=== PATIENT | male | born 1945 ===

== ENCOUNTER 2022-05-19 10:17 | Inpatient (IN) | payer MEDICARE, OTHER ==
[~2022-05-19] VITALS: Ht 172.7 cm; Wt 96.0 kg
[2022-05-19] MEDS ORDERED: ALLO300T2 PO (11:38)
[2022-05-19] MEDS ORDERED: FINA5TAB6 PO (11:38)
[2022-05-19] MEDS ORDERED: SERT-414 PO (11:38)
[2022-05-19] MEDS ORDERED: PANT40TA52 PO (11:38)
[2022-05-19] MEDS ORDERED: GABA-486 PO (11:38)
[2022-05-19] MEDS ORDERED: LACTULOSE SYRUP 10GM/15ML (ENULOSE) 30ML UDC PO PRN (12:15)
[2022-05-19] MEDS ORDERED: FLEET ENEMA ADULT 1 EA BTL PR PRN (12:15)
[2022-05-19] MEDS ORDERED: diphenhydrAMINE 25 MG TAB (BENADRYL) PO PRN (12:15)
[2022-05-19] MEDS ORDERED: guaiFENesin/CODEINE (ROBITUSSIN AC) 10ML UDC PO PRN (12:15)
[2022-05-19] MEDS ORDERED: LOPERAMIDE 2 MG (IMODIUM) TABLET PO PRN (12:15)
[2022-05-19] MEDS ORDERED: MELATONIN 3 MG TABLET PO PRN (12:15)
[2022-05-19] MEDS ORDERED: CALCIUM CARBONATE 500 MG (TUMS) TAB.CHEW PO PRN (12:15)
[2022-05-19] MEDS ORDERED: BISACODYL 10 MG SUPP (DULCOLAX) PR PRN (12:15)
[2022-05-19] MEDS ORDERED: DOCUSATE SODIUM 100 MG (COLACE) CAP PO PRN (12:15)
[2022-05-19] MEDS ORDERED: ONDANSETRON 4 MG (ZOFRAN) ORAL DISSOLVE TAB PO PRN (12:15)
--- NOTE | 2022-05-19 12:15 | PM&R Post Admission Assessment ---
PM&R Date of Visit: May 19, 2022 Time of Visit: 17:00 History of Present Illness Chief complaint: Lumbar spine surgery with debility History of present illness: This is a 77-year-old male who has very complicated medical history including CLL, CKD, and gout who presents to inpatient rehab due to slow recovery and in need of aggressive PT and OT in order to regain independence to return back home with . He is currently much improved since postoperative course revealed postoperative pneumonia requiring Rocephin and vancomycin empirically along with 1 unit of transfusion at [facility] but upon lab check today his hemoglobin was 6.8 requiring blood transfusion today. He is voiding well since catheter was removed and his bowels are moving. Pain is pretty well controlled. Prior level of function was independent with use of assistive device due to back pain living with his spouse at home. Patient will require close monitoring for high risk complications during the inpatient rehab course. Past Gtwqnfw-Ebgidr-Wpzopx Hx Past Med/Social Hx: Reviewed Nursing Past Med/Soc Hx, Reviewed and Corrections made Patient Social History Marrital Status: Employed/Student: retired Alcohol Use: Denies Use Smoking Status: Never a Smoker Past Medical History Surgeries: Orthopedic Respiratory: Pneumonia, Sleep Apnea Cardiac: Coronary Artery Disease, High Cholesterol, Hypertension Neurological: Neuropathy Genitourinary: Benign Prostatic Hyperpl, Bladder Infection Gastrointestinal: Gastroesophageal Reflux Musculoskeletal: Arthritis, Chronic Back Pain Cancer: Leukemia Did You Recieve Any Treatments: Yes What Type of Treatment Did You: Chemotherapy PM&R Allergy/Meds/Data Review Allergies Coded Allergies: No Known Drug Allergies (Unverified , 05/19/22) Home Medications Scheduled Allopurinol (Allopurinol), 300 MG PO DAILY, (Reported) Finasteride (Finasteride), 5 MG PO DAILY, (Reported) Gabapentin (Gabapentin), 100 MG PO BID, (Reported) Pantoprazole Sodium (Pantoprazole Sodium), 40 MG PO DAILY, (Reported) Sertraline HCl (Sertraline HCl), 100 MG PO DAILY, (Reported) Current Medications Current Medications Reviewed Review of Systems Constitutional: see HPI, malaise, weakness EENTM: no symptoms reported Respiratory: no symptoms reported Cardiovascular: no symptoms reported Gastrointestinal: no symptoms reported Genitourinary: decreased output Musculoskeletal: back pain Skin: no symptoms reported Psychiatric/Neurological: Depressed All Other Systems Reviewed Negative Unless Noted: Yes Physical Exam Physical Exam Vital Signs Capillary Refill : Height, Weight, BMI Height: '" Weight: lbs. oz. kg; BMI Method: General Appearance: No Apparent Distress, WD/WN, Chronically ill Eyes: Bilateral Eye Normal Inspection, Bilateral Eye PERRL HEENT: PERRL/EOMI, Normal ENT Inspection, Pharynx Normal Neck: Full Range of Motion, Normal Inspection, Non Tender, Supple, Carotid Bruit Respiratory: Chest Non Tender, Lungs Clear, Normal Breath Sounds, No Accessory Muscle Use, No Respiratory Distress, Decreased Breath Sounds Cardiovascular: Regular Rate, Rhythm, No Edema, No Gallop, No JVD, No Murmur, Normal Peripheral Pulses Gastrointestinal: Normal Bowel Sounds, No Organomegaly, No Pulsatile Mass, Non Tender, Soft Back: Normal Inspection, No CVA Tenderness, No Vertebral Tenderness Extremity: Normal Capillary Refill, Normal Inspection, Normal Range of Motion, Non Tender, No Calf Tenderness, No Pedal Edema Neurologic/Psychiatric: Alert, Oriented x3, yarn tester II-XII Norm as Tested, Abnormal Gait, Depressed Affect, Motor Weakness (Lower extremities 4/5) Skin: Normal Color, Warm/Dry Lymphatic: No Adenopathy PM&R Medical Assessment & Plan REHAB/MEDICAL ASSESSMENT AND PLAN: REHAB IMPAIRMENT GROUP: Lumbar spine stenosis with myelopathy ETIOLOGIC DIAGNOSIS: Lumbar spine stenosis with myelopathy The comorbidities that impact the patients function and/or functional outcome by: Advanced age, CLL, transfusions required, CAD, severe debility REHAB PLAN: The patient is being admitted to our comprehensive inpatient rehabilitation facility and can tolerate the intensity of service consisting of at least: 180 minutes of therapy a day, 5 out of 7 days a week Rehab treatment will consist of: PT and OT will focus on regaining ambulatory function with fall risk prevention in order to regain independence in ADLs in order to return back home to independent living The patient/family has a good understanding of our discharge process and will benefit from an interdisciplinary inpatient rehabilitation program. The patient has potential to make improvement and is in need of at least two of the following multidisciplinary therapies including but not limited to physical, occupational, speech, and prosthetics and orthotics. Additionally the patient will need services from respiratory, nutritional services, wound care, psychology, etc. (Customize this to each patient). Given the patients complex condition and risk of further medical complications, rehabilitation services cannot be safely or effectively provided at a lower level of care such as a [place] [facility] facility. BARRIERS TO DISCHARGE: Severe debility ESTIMATED LOS: 10 days DISPOSITION: Home RELEVANT CHANGES SINCE PREADMISSION SCREENING: I have compared the patients medical and functional status at the time of the preadmission screening and there are: No changes PROGNOSIS: Good REHABILITATION GOALS: 1.PT and OT will focus on regaining ambulatory function with fall risk prevention in order to regain independence in ADLs in order to return back home to independent living All the above goals were reviewed with the patient and he/she is in agreement. By signing this document, I acknowledge that I have personally performed a full physical examination on this patient within 24 hours of admission to this inpatient rehabilitation facility and have determined the patient to be able to tolerate the above course of treatment at an intensive level for a reasonable period of time. I will be completing a detailed individualized Plan of Care for this patient by day #4 of the patients stay based upon the Preadmission Screen, the Post-Admission Evaluation, and the therapy evaluations. Admission Dx/Comorbidities: (1) Lumbar spinal stenosis ICD Codes: M48.061 - Spinal stenosis, lumbar region without neurogenic claudication Assessment/Plan Assessment and Plan Assess & Plan/Chief Complaint Assessment: Debility following extensive lumbar spine decompression by Dr. CAPPS at [facility] Postoperative pneumonia Postoperative anemia requiring 1 unit of blood at [facility] and again on a dmit on 05/19/2022 at [facility] History of CLL with chronic leukocytosis CAD previous stent Hypertension Hyperlipidemia ANA Depression GERD Gout Plan: Complete IV antibiotics for pneumonia Pain control Home meds PT and OT NAHUM NAIK DO May 19, 2022 12:15
[2022-05-19] MEDS ORDERED: VANCOMYCIN INJECTION 0.1 MG in NS (IVPB) 250 ML IV SCH (12:45)
[2022-05-19 14:30] VITALS: BP 138/58
--- NOTE | 2022-05-19 15:25 | Physical Therapy Evaluation ---
PT Evaluation-General Medical Diagnosis Admission Date May 19, 2022 at 14:10 Medical Diagnosis: L4-S1 TLIF Onset Date: May 19, 2022 Therapy Diagnosis Therapy Diagnosis: Gait deficit, strength deficit Precautions Precautions/Isolations: Fall Prevention Back precautions Weight Bear Status Right Lower Extremity: Right Full Weight Bearing Left Lower Extremity: Left Full Weight Bearing Referral Physician: Dr. Mahmood Reason for Referral: Evaluation/Treatment Medical History History of Falls (past yr): No Prior Surgery (last 100 days): Yes Reviewed History: Yes Social History Home: Single Level Current Living Status: Spouse Entry Into Home: Stairs Without Railing PT Steps Into Home: 3 Prior Prior Level of Function SCALE: Activities may be completed with or without assistive devices. 6-Ulyynjflzn-ezbkjzb completes the activity by him/herself with no assistance from a helper. 5-Set-up or Clean-up Assistance-helper sets up or cleans up; patient completes activity. [place] assists only prior to or following the activity. 4-Supervision or Touching Assistance-helper provides verbal cues and/or touching/steadying and/or contact guard assistance as patient completes activity. Assistance may be provided throughout the activity or intermittently. 3-Partial/Moderate Assistance-helper does LESS THAN HALF the effort. [place] lifts, holds or supports trunk or limbs, but provides less than half the effort. 2-Substantial/Maximal Assistance-helper does MORE THAN HALF the effort. [place] lifts or holds trunk or limbs and provides more than half the effort. 8-Psdgqwslj-vymvvr does ALL the effort. Patient does none of the effort to complete the activity. Or, the assistance of 2 or more helpers is required for the patient to complete the activity. If activity was not attempted, code reason: 7-Patient Refused. 9-Not Applicable-not attempted and the patient did not perform the activity before the current illness, exacerbation or injury. 10-Not Attempted due to Environmental Limitations-(lack of equipment, weather restraints, etc.). 88-Not Attempted due to Medical Conditions or Safety Concerns. Bed Mobility: 6 Transfers (B,C,W/C): 6 Gait: 6 Stairs: 6 Indoor Mobility (Ambulation): Independent Stairs: Independent Prior Devices Use: None PT Evaluation-Current Subjective Patient sitting in w/c upon PT arrival, agreeable to treatment. He reports pain currently is 7/10. OT reports he required min A for BLEs out of the car. Pain Section J - Health Conditions 1. Rarely or not at all 2. Occasionally 3. Frequently 4. Almost constantly 8. Unable to answer Pain Effect on Sleep: 7 Pain Interference with Therapy: 7 Pain Interference w/Day-to-Day: 7 Objective Patient Orientation: Person, Place, Time, Situation ROM/Strength ROM Lower Extremities WFLs bilaterally all planes Strength Lower Extremities Right hip flexion 3-/5, hip abd 3+/5, hip adduction 4/5, knee flexion 3+/5, knee extension 3-/5 Left hip flexion 3-/5, hip abd 3-/5, hip adduction 4/5, knee flexion 3/5, knee extension 3-/5 Sensory Vision: Functional Hearing: Functional Sensation Right Lower Extremit: Intact Sensation Left Lower Extremity: Impaired Transfers Roll Left & Right (QC): 88 Sit to Lying (QC): 88 Lying to Sitting/Side of Bed(Q: 88 Sit to Stand (QC): 3 Chair/Cyr-lc-Ivvvo Xfer(QC): 3 Toilet Transfer (QC): 3 Car Transfer (QC): 3 Gait Does the Patient Walk?: Yes Mode of Locomotion: Walk Anticipated Mode of Locomotion: Walk Walk 10 feet (QC): 4 Walk 50 ft with 2 Turns(QC): 3 Walk 150 ft (QC): 3 Walking 10ft/uneven surface-QC: 4 Distance: 250 feet Gait Assistive Device: FWW Wheelchair Training Does the Pt Use a Wheelchair?: Yes Distance: 150 Wheel 50 ft with 2 turns (QC): 4 Wheel 150 ft (QC): 4 Type of Wheelchair: Manual Refuses to use his bilateral UEs initially and only uses his LEs. Stairs #of Steps: 4 1 Step (curb) (QC): 4 4 Steps (QC): 4 12 Steps (QC): 88 Balance Sitting Static: Good Sitting Dynamic: Fair Standing Static: Fair Standing Dynamic: Fair Picking up an Object (QC): 88 Treatment Patient was co-treated with OT due to the patients need for two disciplines in various aspects of treatment. OT focused on ADLs, Cognitive activity and UE activities, while PT focused on gait, balance sitting and standing, w/c mobility and steps. Patient performed standing and sitting dynamic balance activity with SBA/CGA for numerous repetitions. Assessment/Needs Patient tolerated treatment well. He demonstrates all observed transfers with min/mod A. Patient ambulates 150, 250 feet with FWW, with CGA and verbal cues for safety, progression, posture and balance. Patient ambulates with LSO properly applied. He demonstrates an accentuated thoracic kyphosis and f lattened lumbar lordosis with rounded shoulders and mild forward head shift. Patient stops briefly while ambulating more than 5 times with each gait session, stating he feels his leg will give out. Reports his left LE feels weak and stops to steady himself. Able to self correct without assistance, however does occur frequently. Patient sitting on table with OT post PT treatment. Rehab Potential: Good PT Field Recorder Goals Field Recorder Goals PT Intermediate Goals Time Frame: Jun 03, 2022 Scoring Section J - Health Conditions 1. Rarely or not at all 2. Occasionally 3. Frequently 4. Almost constantly 8. Unable to answer Pain Effect on Sleep: 2 Pain Interference with Therapy: 2 Pain Interference w/Day-to-Day: 2 Roll Left to Right (QC): 6 Lying-Sitting on Side/Bed(QC): 6 Sit to Stand (QC): 6 Chair/Hcb-vv-Idvio Xfer(QC): 6 Car Transfer (QC): 6 Does the Patient Walk: Yes Gait (FIM): 3 Gait distance (FIM): 3=150 ft Walk 10 feet (QC): 6 Walk 10ft-Uneven Surface(QC): 6 Walk 50ft with 2 Turns (QC): 6 Walk 150 ft (QC): 6 Gait Assistive Device: FWW Does the Pt use WC or Scooter?: Yes Wheelchair (FIM): 3 Wheelchair Level of Assist: 6 Wheel 50 feet with 2 turns (QC: 6 Stairs (FIM): 6 1 Step (curb) (QC): 6 4 Steps (QC): 6 12 Steps (QC): 4 Stairs Level Of Assist: 6 Picking up an Object (QC): 6 PT Plan Problem List Problem List: Activity Tolerance, Functional Strength, Safety, Balance, Gait, Transfer, Bed Mobility, ROM Treatment/Plan Treatment Plan: Continue Plan of Care Treatment Plan: Bed Mobility, Education, Functional Activity Rafal, Functional Strength, Group Therapy, Gait, Safety, Therapeutic Exercise, Transfers Treatment Duration: Jun 24, 2022 Frequency: At least 5 of 7 days/Wk (IRF) Estimated Hrs Per Day: 1.5 hours per day Patient and/or Family Agrees t: Yes Safety Risks/Education Patient Education: Gait Training, Transfer Techniques Teaching Recipient: Patient Teaching Methods: Demonstration, Discussion Response to Teaching: Verbalize Understanding, Return Demonstration Time/GCodes Time In: 1430 Time Out: 1515 Total Billed Treatment Time: 45 Total Billed Treatment Visit, EVm (10), FA (20), Gait (15) PT eval from [id number]; Co-Treat with OT from [id number] POLI MAC PT May 19, 2022 15:25
[2022-05-19] MEDS: HYDROcodone/APAP 7.5 MG/325 MG (LORTAB, LORCET PLUS) TABLET PO PRN ×2 (15:30→20:41)
--- NOTE | 2022-05-19 15:54 | Physical Therapy Daily Note ---
PT Daily Note-Current Subjective Patient in therapy gym pre tx, agrees to PT, has 7-8/10 back pain, nurse brings in pain meds during tx. Will be co-treating with OT due to poor patient mobility, strength, endurance, increased pain with activity, coordinate UE and LE during activity, safety and reduce risk of falls. Pain Section J - Health Conditions 1. Rarely or not at all 2. Occasionally 3. Frequently 4. Almost constantly 8. Unable to answer Pain Effect on Sleep: 7 Pain Interference with Therapy: 7 Pain Interference w/Day-to-Day: 7 Appearance Patient in bed post tx with nurse call, phone, tray, bed alarm on. Mental Status Patient Orientation: Person, Place, Situation back brace Transfers SCALE: Activities may be completed with or without assistive devices. 2-Yiicsdqkys-qhcflyt completes the activity by him/herself with no assistance from a helper. 5-Set-up or Clean-up Assistance-helper sets up or cleans up; patient completes activity. [place] assists only prior to or following the activity. 4-Supervision or Touching Assistance-helper provides verbal cues and/or touching/steadying and/or contact guard assistance as patient completes activity. Assistance may be provided throughout the activity or intermittently. 3-Partial/Moderate Assistance-helper does LESS THAN HALF the effort. [place] lifts, holds or supports trunk or limbs, but provides less than half the effort. 2-Substantial/Maximal Assistance-helper does MORE THAN HALF the effort. [place] lifts or holds trunk or limbs and provides more than half the effort. 3-Yneyyolpe-cbwsdi does ALL the effort. Patient does none of the effort to complete the activity. Or, the assistance of 2 or more helpers is required for the patient to complete the activity. If activity was not attempted, code reason: 7-Patient Refused. 9-Not Applicable-not attempted and the patient did not perform the activity before the current illness, exacerbation or injury. 10-Not Attempted due to Environmental Limitations-(lack of equipment, weather restraints, etc.). 88-Not Attempted due to Medical Conditions or Safety Concerns. Roll Left & Right (QC): 4 Sit to Lying (QC): 3 Lying to Sitting/Side of Bed(Q: 3 Sit to Stand (QC): 3 Chair/Lih-ri-Kytct Xfer(QC): 4 min assist for supine <-> sit, educated on log roll, min assist sit to stand. Patient performed standing UE activity and seated balloon hitting to work on trunk strength and stability Weight Bearing Right Lower Extremity: Right Full Weight Bearing Left Lower Extremity: Left Full Weight Bearing Gait Training Distance: 300' Walk 10 feet (QC): 4 Walk 50 ft with 2 Turns(QC): 4 Walk 150 ft (QC): 4 Gait Assistive Device: FWW WC follow, SBA, slow but steady ambulation, occasional standing rest break. Balance Picking up an Object (QC): 4 (CGA using a knot borer) Treatments PT performed ambulation, bed mobility and transfers, standing during UE activity and positioning and safety during balloon activity, OT performed balloon activity, UE activity, UE positioning and safety during activity Assessment Current Status: Fair Progress increased pain with activity PT Long-Term Goals Loom Tuner Goals PT Long-Term Goals Time Frame: Jun 03, 2022 Roll Left & Right (QC): 6 Sit to Lying (QC): 6 Lying-Sitting on Side/Bed(QC): 6 Sit to Stand (QC): 6 Chair/Ndi-qs-Eytes Xfer(QC): 6 Toilet Transfer (QC): 6 Car Transfer (QC): 6 Does the Patient Walk: Yes Walk 10 feet (QC): 6 Walk 50ft with 2 Turns (QC): 6 Walk 150 ft (QC): 6 Walking 10ft on Uneven Surface: 6 1 Step (curb) (QC): 6 4 Steps (QC): 6 12 Steps (QC): 4 Picking up an Object (QC): 6 Does the Pt use WC or Scooter?: Yes Wheel 50 feet with 2 turns (QC: 6 Wheel 150 feet: 6 PT Plan Problem List Problem List: Activity Tolerance, Functional Strength, Safety, Balance, Gait, Transfer, Bed Mobility, ROM Treatment/Plan Treatment Plan: Continue Plan of Care Treatment Plan: Bed Mobility, Education, Functional Activity Rafal, Functional Strength, Group Therapy, Gait, Safety, Therapeutic Exercise, Transfers Treatment Duration: Jun 24, 2022 Frequency: At least 5 of 7 days/Wk (IRF) Estimated Hrs Per Day: 1.5 hours per day Patient and/or Family Agrees t: Yes Safety Risks/Education Patient Education: Gait Training, Transfer Techniques, Reviewed Precautions, Correct Positioning, Reviewed Don/Doff Brace, Safety Issues Teaching Recipient: Patient Teaching Methods: Demonstration, Discussion Response to Teaching: Reinforcement Needed Time/GCodes Time In: 1515 Time Out: 1600 Total Billed Treatment Time: 45 Total Billed Treatment 1 visit FA Veronique' RIDGE SHI PT May 19, 2022 15:54
--- NOTE | 2022-05-19 15:59 | Occupational Therapy Eval ---
OT Evaluation-General/PLF Medical Diagnosis Admission Date May 19, 2022 at 14:10 Medical Diagnosis: L4-S1 TLIF Onset Date: May 19, 2022 Therapy Diagnosis Therapy Diagnosis: decreased ADL status Precautions Precautions/Isolations: Fall Prevention Comments Back precautions, back brace when OOB and up, 10-15lb lifting restriction Referral Physician: Dr. Mahmood Referral Reason: Evaluation/Treatment Medical History Additional Medical History anxiety, arthritis, depression, horseshoe kidney, HTN, incomplete bladder emptying, elbow surgery, b/l knee replacements. Current History s/p L4-S1 TLIF with bilateral percutaneous fusion 05/16/22. Transfer to [facility] 05/19/22 Social History Home: Single Level Current Living Status: Spouse Entry Into Home: Stairs Without Railing Steps Into Home: 3 ADL-Prior Level of Function SCALE: Activities may be completed with or without assistive devices. 5-Nflaaikvsa-yemjknf completes the activity by him/herself with no assistance from a helper. 5-Set-up or Clean-up Assistance-helper sets up or cleans up; patient completes activity. Tarzan assists only prior to or following the activity. 4-Supervision or Touching Assistance-helper provides verbal cues and/or touching/steadying and/or contact guard assistance as patient completes activity. Assistance may be provided throughout the activity or intermittently. 3-Partial/Moderate Assistance-helper does LESS THAN HALF the effort. Tarzan lifts, holds or supports trunk or limbs, but provides less than half the effort. 2-Substantial/Maximal Assistance-helper does MORE THAN HALF the effort. Tarzan lifts or holds trunk or limbs and provides more than half the effort. 9-Jxjcxkdef-reayql does ALL the effort. Patient does none of the effort to complete the activity. Or, the assistance of 2 or more helpers is required for the patient to complete the activity. If activity was not attempted, code reason: 7-Patient Refused. 9-Not Applicable-not attempted and the patient did not perform the activity before the current illness, exacerbation or injury. 10-Not Attempted due to Environmental Limitations-(lack of equipment, weather restraints, etc.). 88-Not Attempted due to Medical Conditions or Safety Concerns. ADL PLOF Comments Pt initially indicated he had difficulty with completing ADLs prior to his surgery, but upon further questioning reports he was independent with all ADLs and functional mobility without AD. He has a tub/shower, no SC Self Care: Independent Functional Cognition: Independent OT Current Status Subjective Pt arrived to [facility] via private vehicle, assisted to ARU. C/o 6-03/06 pain in low back at rest, 05/07 with activity. Nurse notified and provided pain medication. Pt declined ADLs on this date, as he had a shower earlier today at other facility. Pt agreeable to ADL tx tomorrow. Mental Status/Objective Patient Orientation: Person, Confused, Place, Situation Acute Mental Status Change: 1 Inattention: 2 Disorganized thinkin Altered level of consciousness: 0 Attachments: Other-See Comments (LSO) Current Hand Dominance: Right Upper Extremity ROM WFL, BUE shoulder flexion to approx 150 degrees Upper Extremity Coordination WFL Upper Extremity Sensation WFL Upper Extremity Strength not formally tested due to lifting restriction, grossly 3+/5 ADL-Treatment Eating (QC): 7 Oral Hygiene (QC): 7 Shower/Bathe Self (QC): 7 Upper Body Dressing (QC): 7 Lower Body Dressing (QC): 7 On/Off Footwear (QC): 7 Toileting Hygiene (QC): 7 Other Treatments Pt arrived to ARU via private vehicle, transferred to w/c and brought to ARU. Pt provided information about PLOF And home set up and participated in UE screen. PT present for evaluation (not billed). OT/PT cotreat due to skill of 2 clinicians required which a rehab liaison could not perform in order to coordinate UE/LEs, decrease fall risk, and due to pt's limitations in strength, activity tolerance, mobility, and transfers. OT focused on UE placement and cues for sequencing and safety, PT focused on LE placement, dynamic standing/sitting ba sen, and gross overall movements/transfers. Pt used FWW to transfer around [facility] common area and to therapy gym. Pt sat EOB and completed 2 pipe tree figures, 1lb wrist weight bilaterally, in order to increase BUE strength, dynamic sitting balance, and core strength. Pt then completed 1 pipe tree figure standing, with 1 seated rest break during task. Pt sat EOB, hitting balloon back and forth with OT as PT focused on dynamic sitting balance and core strength. Pt used FWW to perform functional mobility around [facility] common area and to his room, transferring to bed. Post tx, pt in bed, call light in reach and all needs met, bed alarm act ivated. min-mod A with transfers, CGA-SBA with ambulation using FWW. VCs required for safety and positioning. Education OT Patient Education: Correct positioning, Energy conservation, Modified ADL techniques, Progress toward Goal/Update tx plan, Purpose of tx/functional activities, Reviewed precautions, Rehab process Teaching Recipient: Patient Teaching Methods: Discussion Response to Teaching: Reinforcement Needed OT Short Term Goals Short Term Goals Time Frame: Jun 03, 2022 Shower/bathe self: 4 Lower body dressin Putting on/taking off footwear: 4 OT Half-Way Goals Bar Pilot Goals Time Frame: Jun 17, 2022 Acute change in mental status: 0 Inattention: 0 Disorganized thinkin Altered level of consciousness: 0 Eating (QC): 6 Oral Hygiene (QC): 6 Toileting Hygiene (QC): 6 Shower/Bathe Self (QC): 5 Upper Body Dressing (QC): 6 Lower Body Dressing (QC): 6 On/Off Footwear (QC): 6 Additional Goals: 1-Demonstrate ADL Tasks, 2-Verbalize Understanding, 3- ImproveStrength/Rafal 1=Demonstrate adherence to instructed precautions during ADL tasks. 2=Patient will verbalize/demonstrate understanding of assistive devices/modifications for ADL. 3=Patient will improve strength/tolerance for activity to enable patient to perform ADL's. OT Education/Plan Problem List/Assessment Assessment: Decreased Activ Tolerance, Decreased Safety Aware, Decreased UE Strength, Impaired Cognition, Impaired Funct Balance, Impaired I ADL's, Impaired Self-Care Skills Discharge Recommendations Plan/Recommendations: Continue POC Equpiment Recommendations-D/C: Extended Bath Bench, Hip Kit Treatment Plan/Plan of Care Patient would benefit from OT for education, treatment and training to promote independence in ADL's, mobility, safety and/or upper extremity function for ADL's. Plan of Care: ADL Retraining, Functional Mobility, Group Exercise/Act as Ind, UE Funct Exercise/Act Treatment Duration: Jun 17, 2022 Frequency: At least 5 of 7 days/Wk (IRF) Estimated Hrs Per Day: 1.5 hours per day Agreement: Yes Rehab Potential: Good Time/GCodes Start Time: 14:15 Stop Time: 16:00 Total Time Billed (hr/min): 95 Billed Treatment Time 8058-5717 OT eval (15'), [id number] PT eval (not billed), [id number] Cotreat (80') 1, EVL (15'), FA 5 (80') BETTY CALI OT May 19, 2022 15:59
[2022-05-19] MEDS: cefTRIAXone 1 GM PRE-MIX 50 ML IV SCH (16:07)
--- NOTE | 2022-05-19 17:14 | Diagnostic Imaging Report ---
EXAMINATION: Chest 1 view HISTORY: Pneumonia. COMPARISON: None available. FINDINGS: The lungs are clear without edema or pneumonia. No pleural effusion or pneumothorax. Heart size is normal. IMPRESSION: 1. Clear lungs. Dictated by: Dictated on workstation # [id number]
[2022-05-19] MEDS ORDERED: VANCOMYCIN 1,750 MG/NS 500 ML IVPB IV NR ×2 (18:00)
--- NOTE | 2022-05-19 18:02 | Progress Note ---
RAMANA ANDUJAR 05/19/22 1802: Progress Note Chief Complaint: Debility following L4-S1 TLIF/PSF complicated by aspiration pneumonia History of Present Illness: This is a 77yo Male s/p L4-S1 SLIF/PSF ([id number]) which was complicated by aspiration pneumonia. Was placed on Zosyn. Slow to progress due to debility and episodes of confusion. Patient was transferred here to [facility] inpatient rehab for continuation of antibiotics and therapy. Medical history includes Anxiety, Depression, CLL (with anemia and thrombocytopenia), CAD, Arthritis, Horseshoe kidney, Incomplete Bladder Emptying, BPH, Lumbar radiculopathy, Lumbar spinal stenosis, Lumbar spondylolisthesis, Neurogenic claudication, degenerative disc disease. Patient reports that he does not take finasteride due to frequent urination. Patient reports that he feels well overall. Patient reports receiving 2 units of platelets pre-op and 1 unit of blood post-op. Patient is lying in bed comfortably with CPAP when I visited and is accompanied by his . Past Medical History: Anxiety, Depression, CLL (with anemia and thrombocytopenia), CAD, Arthritis, Horseshoe kidney, Incomplete Bladder Emptying, BPH, Lumbar radiculopathy, Lumbar spinal stenosis, Lumbar spondylolisthesis, Neurogenic claudication, degenerative disc disease Past Surgical History: Cystoscopy (2005), Prostate biopsy (2006 and 2007), Appendectomy, Cholecystectomy, Elbow Surgery, prostate TUNA Allergies: Amoxicillin (severe diarrhea) Home Meds: Allopurinol, 300 MG PO DAILY Finasteride, 5 MG PO DAILY Gabapentin, 100 MG PO BID Pantoprazole Sodium, 40 MG PO DAILY Sertraline HCl, 100 MG PO DAILY Multivitamin Social History: Tobacco: former smoker (quit in 1991) ETOH: denies Illicit Drugs: denies : Yes Family History: Stroke (father) Review of Systems: Constitutional: Denies chills, diaphoresis, dizziness, fever, malaise, weakness, weight gain, or weight loss HEENTM: Denies hearing loss, blurred vision, double vision, hoarseness Respiratory: Endorses SOA and dyspnea on exertion. Denies cough, hemoptysis, orthopnea, phlegm, stridor, wheezing Cardiovascular: Denies chest pain, tightness, palpitations, syncope, valvular heart disease G.I.: Denies abdominal pain, nausea, vomiting, diarrhea, constipation, dysphasia, hematemesis, heartburn, jaundice, loss of appetite, melena : Denies change in urine output, discharge, dysuria, hematuria, hesitancy, incontinence, nocturia, pain Musculoskeletal: Denies back pain, gout, joint pain, joint swelling, muscle pain, weakness, neck pain Skin: Denies change in color, change in hair/nails, dryness, hx of skin cancer, rash Psychiatric/neurological: Endorses anxiety, depression. Denies headache, numbness, paresthesia, tremors, weakness Exam: General Appearance: Older white male in no apparent distress. Chronically ill and obese. HEENT: PERRLA, EOMI, moist mucous membranes, anicteric sclera bilaterally. Respiratory: Lungs CTAB normal breath sounds, no accessory muscle use, no respiratory distress. CVS: RRR, no murmur, no edema GI: Normoactive bowel sounds, no organomegaly, no pulsatile mass, abdomen nontender, colostomy stoma Neuro: Alert, Oriented x3, No motor/sensory deficits, normal mood/affect, CN II- XII normal as tested Extremity: No edema, No decreased ROM in extremities Labs/Imaging: CBC w/ Diff (17MAY2022): WBC 32.5 K/uL Hgb 6.9 g/dL Hct 23.7% Plt 53 K/uL XR Chest (17MAY2022): Rounded pneumonia suspected right upper lung Assessment: s/p L4-S1 TLIV/PSF (16MAY2022) Aspiration Pneumonia CLL (with anemia and thrombocytopenia) CAD Anxiety Depression horseshoe kidney BPH Spinal stenosis Spondylolisthesis Neurogenic claudication degenerative disc disease. Plan: Monitor Labs Contine abx for aspiration PNA: ceftriaxone, vancomycin Supportive Care PT, OT KATIE NAIK DO 05/20/22 [id number]: Supervisory-Addendum Brief Verification & Attestation Participated in pt care: history, MDM, physical Personally performed: exam, history, MDM, supervision of care Care discussed with: Medical Student Procedures: n/a Results interpretation: Verified all documentation Verification and Attestation of Medical Student E/M Service A medical student performed and documented this service in my presence. I reviewed and verified all information documented by the medical student and made modifications to such information, when appropriate. I personally performed the physical exam and medical decision making. Katie Naik, May 20, 2022,05:30 RAMANA ANDUJAR May 19, 2022 18:02 KATIE NAIK DO May 20, 2022 05:30
[2022-05-19 18:24] LABS: BASOPHILS # (AUTO) 0.1 10^3/uL (0.0-0.1); BASOPHILS % (AUTO) 0 % (0-10); MEAN CORPUSCULAR HEMOGLOBIN 29 pg (25-34)
[2022-05-19 18:25] LABS: EOSINOPHILS % (AUTO) 0 % (0-10); HEMATOCRIT 23 % (40-54); LYMPHOCYTES # (AUTO) 1.6 10^3/uL (1.0-4.0); LYMPHOCYTES % (AUTO) 5 % (12-44); MEAN CORPUSCULAR HGB CONC 30 g/dL (32-36); MEAN CORPUSCULAR VOLUME 96 fL (80-99); MONOCYTES # (AUTO) 6.7 10^3/uL (0.0-1.0); MONOCYTES % (AUTO) 21 % (0-12); NEUTROPHILS # (AUTO) 21.3 10^3/uL (1.8-7.8); NEUTROPHILS % (AUTO) 68 % (42-75)
[2022-05-19 18:31] LABS: HEMOGLOBIN 6.8 g/dL (13.3-17.7); WHITE BLOOD COUNT 31.4 10^3/uL (4.3-11.0)
[2022-05-19 18:32] LABS: PLATELET COUNT 34 10^3/uL (130-400)
[2022-05-19 18:35] LABS: ALBUMIN 2.9 GM/DL (3.2-4.5); POTASSIUM 3.4 MMOL/L (3.6-5.0)
[2022-05-19 18:36] LABS: CALCIUM 8.2 MG/DL (8.5-10.1)
[2022-05-19 18:37] LABS: TOTAL PROTEIN 5.2 GM/DL (6.4-8.2)
[2022-05-19 18:39] LABS: BILIRUBIN,TOTAL 0.9 MG/DL (0.1-1.0)
[2022-05-19 18:41] LABS: CREATININE SERUM 0.81 MG/DL (0.60-1.30)
[2022-05-19 18:55] LABS: BAND NEUTROPHILS 2 %; BURR CELLS MODERATE; ELLIPT/OVALOCYTES MARKED; EOSINOPHILS % (MANUAL) 1 %; HYPOCHROMASIA MARKED; LYMPHOCYTES % (MANUAL) 4 %; MONOCYTES % (MANUAL) 13 %; NEUTROPHILS % (MANUAL) 80 %
[2022-05-19 20:05] VITALS: BP 133/62
[2022-05-19] MEDS: GABAPENTIN 100 MG (NEURONTIN) CAP PO SCH (20:40)
[2022-05-19] MEDS ORDERED: NS IV 500 ML 500 ML IV SCH ×2 (20:45)
[2022-05-19] MEDS: polyethylene glycoL POWDER 17 GM (MIRALAX) PACK PO SCH (21:00)
[2022-05-19] MEDS: SENNA W/DOCUSATE (SENOKOT S) TABLET PO SCH (21:00)
[2022-05-19] MEDS: DOCUSATE SODIUM 100 MG (COLACE) CAP PO SCH (21:00)
[2022-05-20 00:40] VITALS: BP 145/68
[2022-05-20 01:10] VITALS: BP 145/68
[2022-05-20] MEDS: HYDROcodone/APAP 7.5 MG/325 MG (LORTAB, LORCET PLUS) TABLET PO PRN ×4 (01:19→19:08)
[2022-05-20 04:30] VITALS: BP 152/72
[2022-05-20 05:37] LABS: BASOPHILS % (AUTO) 0 % (0-10); EOSINOPHILS % (AUTO) 0 % (0-10)
[2022-05-20 05:39] LABS: BASOPHILS # (AUTO) 0.1 10^3/uL (0.0-0.1); HEMATOCRIT 25 % (40-54); HEMOGLOBIN 7.6 g/dL (13.3-17.7); LYMPHOCYTES # (AUTO) 1.8 10^3/uL (1.0-4.0); LYMPHOCYTES % (AUTO) 7 % (12-44); MEAN CORPUSCULAR HEMOGLOBIN 27 pg (25-34); MEAN CORPUSCULAR HGB CONC 31 g/dL (32-36); MEAN CORPUSCULAR VOLUME 89 fL (80-99); MONOCYTES # (AUTO) 6.1 10^3/uL (0.0-1.0); MONOCYTES % (AUTO) 22 % (0-12); NEUTROPHILS # (AUTO) 16.9 10^3/uL (1.8-7.8); NEUTROPHILS % (AUTO) 62 % (42-75); PLATELET COUNT 43 10^3/uL (130-400); WHITE BLOOD COUNT 27.3 10^3/uL (4.3-11.0)
--- NOTE | 2022-05-20 05:51 | PM&R Progress Note ---
Subjective HPI/CC On Admission Date Seen by Provider: May 20, 2022 Time Seen by Provider: 12:30 Subjective/Events-last exam 05/20/2022: Doing well Settling in Family at bedside Transfusion has helped the patient Pain improved Baclofen added BM+ Voiding well Review of Systems General: Fatigue, Malaise Objective Exam Vital Signs Vital Signs Date Time Temp Pulse Resp B/P (MAP) Pulse Ox O2 Delivery O2 Flow Rate FiO2 05/20/22 21:50 37.0 05/20/22 21:30 Room Air 05/20/22 20:00 102 18 155/81 (105) 95 Capillary Refill : General Appearance: No Apparent Distress, WD/WN, Chronically ill HEENT: PERRL/EOMI, Normal ENT Inspection, Pharynx Normal Neck: Full Range of Motion, Normal Inspection, Non Tender, Supple, Carotid Bruit Respiratory: Chest Non Tender, Lungs Clear, Normal Breath Sounds, No Accessory Muscle Use, No Respiratory Distress, Decreased Breath Sounds Cardiovascular: Regular Rate, Rhythm, No Edema, No Gallop, No JVD, No Murmur, Normal Peripheral Pulses Gastrointestinal: Normal Bowel Sounds, No Organomegaly, No Pulsatile Mass, Non Tender, Soft Back: Normal Inspection, No CVA Tenderness, No Vertebral Tenderness Extremity: Normal Capillary Refill, Normal Inspection, Normal Range of Motion, Non Tender, No Calf Tenderness, No Pedal Edema Neurologic/Psychiatric: Alert, Oriented x3, roof bolter helper II-XII Norm as Tested, Abnormal Gait, Depressed Affect, Motor Weakness (Lower extremities 4/5) Skin: Normal Color, Warm/Dry Lymphatic: No Adenopathy Results/Procedures Lab Patient resulted labs reviewed. FIM Transfers Therapy Code Descriptions/Definitions Functional [place] Measure: 0=Not Assessed/NA 4=Minimal Assistance 1=Total Assistance 5=Supervision or Setup 2=Maximal Assistance 6=Modified [place] 3=Moderate Assistance 7=Complete IndependenceSCALE: Activities may be completed with or without assistive devices. 3-Sposhihijq-amjroeu completes the activity by him/herself with no assistance from a helper. 5-Set-up or Clean-up Assistance-helper sets up or cleans up; patient completes activity. [place] assists only prior to or following the activity. 4-Supervision or Touching Assistance-helper provides verbal cues and/or touching/steadying and/or contact guard assistance as patient completes activity. Assistance may be provided throughout the activity or intermittently. 3-Partial/Moderate Assistance-helper does LESS THAN HALF the effort. [place] lifts, holds or supports trunk or limbs, but provides less than half the effort. 2-Substantial/Maximal Assistance-helper does MORE THAN HALF the effort. [place] lifts or holds trunk or limbs and provides more than half the effort. 8-Bnzwqmtdt-auxezj does ALL the effort. Patient does none of the effort to complete the activity. Or, the assistance of 2 or more helpers is required for the patient to complete the activity. If activity was not attempted, code reason: 7-Patient Refused. 9-Not Applicable-not attempted and the patient did not perform the activity before the current illness, exacerbation or injury. 10-Not Attempted due to Environmental Limitations-(lack of equipment, weather restraints, etc.). 88-Not Attempted due to Medical Conditions or Safety Concerns. Roll Left to Right (QC): 4 Sit to Lying (QC): 3 Sit to Stand (QC): 3 Chair/Kdo-fn-Xzyas Xfer(QC): 4 Car Transfer (QC): 3 Gait Training Does the Patient Walk?: Yes Distance: 300' Walk 10 feet (QC): 4 Walk 50 ft with 2 Turns(QC): 4 Walk 150 ft (QC): 4 Walking 10ft/uneven surface-QC: 4 Gait Assistive Device: FWW Wheelchair Training Does the Pt Use a Wheelchair?: Yes Distance: 150 Wheel 50 ft with 2 turns (QC): 4 Wheel 150 ft (QC): 4 Type of Wheelchair: Manual Stair Training #of Steps: 4 1 Step (curb) (QC): 4 4 Steps (QC): 4 12 Steps (QC): 88 Balance Picking up an Object (QC): 4 (CGA using a environmental laboratory technician) ADL-Treatment Eating (QC): 7 Oral Hygiene (QC): 7 Shower/Bathe Self (QC): 7 Upper Body Dressing (QC): 7 Lower Body Dressing (QC): 7 On/Off Footwear (QC): 7 Toileting Hygiene (QC): 7 Assessment/Plan Assessment and Plan Assess & Plan/Chief Complaint Assessment: Debility following extensive lumbar spine decompression by Dr. CAPPS at [facility] Postoperative pneumonia Postoperative anemia requiring 1 unit of blood at [facility] and again on admit on 05/19/[address] History of CLL with chronic leukocytosis CAD previous stent Hypertension Hyperlipidemia ANA Depression GERD Gout Plan: Complete IV antibiotics for pneumonia Pain control Home meds PT and OT 05/20/2022: Monitor closely Monitor hgb (1) Lumbar spinal stenosis NAHUM NAIK DO May 20, 2022 05:51
--- NOTE | 2022-05-20 05:51 | Individualized Plan of Care ---
Individualized Plan of Care Rehab Nursing IPOC Order Admission Date May 19, 2022 at 14:10 Current Orders Orders Admission Order(Inpt,Obs,Sdc) (05/19/22 12:11) Vital Signs: Per Unit Policy ( 08,16,00 (05/19/22 12:11) Ashok Izquierdo (05/19/22 12:11) Sequential Compression Device (05/19/22 12:11) Warm In Worker-Inpt Rehab Con (05/19/22 12:11) Rehab Nursing Orders-Ipoc (05/19/22 12:11) Physical Therapy Rehab Orders (05/19/22 12:11) Occupational Therapy Rehab Ord (05/19/22 12:11) Speech Therapy Rehab Orders (05/19/22 12:11) Cbc With Automated Diff (05/20/22 06:00) Comprehensive Metabolic Panel (05/20/22 06:00) Precautions (Aru) (05/19/22 12:11) Weekly Weight WEEK (05/19/22 12:11) Rehab-Intensity Of Therapy (05/19/22 12:11) Initiate Admission Nursing Pro .admission (05/19/22 12:11) Alprazolam Tablet (Xanax Tablet) (05/19/22 12:15) Calcium Carbonate Chew Tablet (Antacid C (05/19/22 12:15) Diphenhydramine Tablet (Benadryl Tablet) (05/19/22 12:15) Docusate Sodium Capsule (Colace Capsule) (05/19/22 21:00) Docusate Sodium Capsule (Colace Capsule) (05/19/22 12:15) Bisacodyl Suppository (Dulcolax Supposit (05/19/22 12:15) Lactulose Oral Solution (Enulose Oral So (05/19/22 12:15) Na Phos/Na Biphos Enema (Fleet Enema Erick (05/19/22 12:15) Guaifenesin/Codeine Syrup (Robitussin Ac (05/19/22 12:15) Loperamide Tablet (Imodium Tablet) (05/19/22 12:15) Melatonin Tablet (Melatonin Tablet) (05/19/22 12:15) Polyethylene Glycol Powder Pkt (Miralax (9/22/22 21:00) Ondansetron Oral Dissolve Tab (Zofran (05/19/22 12:15) Senna S Tablet (Senokot S Tablet) (05/19/22 21:00) Acetaminophen Tablet/Caplet (Tylenol T (05/19/22 12:15) Code/Resuscitation (05/19/22 12:11) Allopurinol Tablet (Zyloprim Tablet) (05/20/22 09:00) Finasteride Tablet (Proscar Tablet) (05/20/22 09:00) Gabapentin Capsule/Tablet (Neurontin Cap (05/19/22 21:00) Pantoprazole Tablet (Protonix Tablet) (05/20/22 09:00) Sertraline Tablet (Zoloft Tablet) (05/20/22 09:00) Tramadol Tablet (Ultram Tablet) (05/19/22 12:45) Hydrocodone/Apap 7.5/325 Tab (Lortab 7. (05/19/22 12:45) Oxycodone Immediate Rel Tablet (Oxyir Ta (05/19/22 12:45) Vancomycin Injection (Vancomycin Injecti (05/19/22 12:45) Ceftriaxone 1 Gm Pre-Mix (Rocephin 1 Gm (05/19/22 15:00) Cbc With Automated Diff (05/19/22 12:42) Comprehensive Metabolic Panel (05/19/22 12:42) Chest 1 View, Ap/Pa Only (05/19/22 12:42) Admission Arrival Bed Request (05/19/22 14:20) General/Regular (05/19/22 Dinner) Vancomycin Injection (Vancomycin Injecti (05/19/22 18:00) Vancomycin Injection (Vancomycin Injecti (05/20/22 06:00) Trough Order (Trough Order-Pharmacy Orde (05/21/22 05:00) Vancomycin,Trough (05/21/22 05:00) Follow-Up Appointment (05/19/22 18:08) Manual Differential (05/19/22 18:12) Vital Signs: Special (Order) (05/19/22 20:43) Consent-Obtain Consent For (05/19/22 20:43) Monitor S/S Transfusion Reacti (05/19/22 20:43) Ns Iv 500 Ml (Sodium Chloride 0.9%) (05/19/22 20:45) Type And Screen (05/19/22 20:43) Red Cells Leukocytes Reduced (05/19/22 20:43) Ns Iv 500 Ml (Sodium Chloride 0.9%) (05/19/22 20:45) Patient Visit (05/19/22 ) Pt Eval Moderate Complexity (05/19/22 ) Functional Activities, Ea 15 (05/19/22 ) Gait Training, Ea 15 Min (05/19/22 ) Patient Visit (05/19/22 ) Functional Activities, Ea 15 (05/19/22 ) Patient Visit (05/20/22 ) Speech Sound Lang Comp (05/20/22 ) Treat. Speech/Lang/Voice (05/20/22 ) Baclofen Tablet (Lioresal Tablet) (05/20/22 12:30) Phenol Throat [place] (Chloraseptic [place]) (05/20/22 12:30) Midline Cap Change Q7D (05/27/22 14:45) Midline Dressing Change Q7D (05/27/22 14:45) Patient Visit (05/20/22 ) Gait Training, Ea 15 Min (05/20/22 ) Exercise Therap, Ea 15 Min (05/20/22 ) Miconazole 2% Powder (Phytoplex Af 2% Po (05/20/22 21:00) Rehab Nursing Orders: Ongoing Assess. of Function Status, Bladder Management, Bladder Scan, Bladder Training, Bowel Management, Bowel Training, Disease Management & Educaiton, DVT Prophylaxis, Fall Prevention, Fluid/Electrolyte/Nutrition Mgmt, Infection Prevention, Medication Management & Education, Management of Risks & Complications, Management of Skin Intergrity, Nutrition Management, Pain Management, Patient/Family Support, Safety Management, Wound Management Intensity of Therapy to be met Patient to be seen: Min.3h per day/5 of 7d PT IPOC Problem List: Activity Tolerance, Functional Strength, Safety, Balance, Gait, Transfer, Bed Mobility, ROM Treatment Plan: Continue Plan of Care Bed Mobility, Education, Functional Activity Rafal, Functional Strength, Group Therapy, Gait, Safety, Therapeutic Exercise, Transfers Treatment Duration: Jun 24, 2022 Frequency: At least 5 of 7 days/Wk (IRF) Estimated Hrs Per Day: 1.5 hours per day OT IPOC Problems: Decreased Activ Tolerance, Decreased Safety Aware, Decreased UE Strength, Impaired Cognition, Impaired Funct Balance, Impaired I ADL's, Impaired Self-Care Skills OT Treatment, Training and Edu: Yes Plan of Care: ADL Retraining, Functional Mobility, Group Exercise/Act as Ind, UE Funct Exercise/Act Treatment Duration: Jun 17, 2022 Frequency: At least 5 of 7 days/Wk (IRF) Estimated Hrs Per Day: 1.[address] IPOC Speech Therapy Treatment Plan: Discontinue ST Treatment Duration: May 20, 2022 Frequency: Modified Program (IRF) Estimated Hrs Per Day: Other Warm In Worker/Case Mgmt Warm In Worker/Case Managemen: Discharge Planning Dietitian/Siene Maker Dietitian/Siene Maker to monitor nutritional status and make changes and/or recommendations as needed and work with speech pathology on dietary upgrades as the occur. Physician IPOC Medical Issues being managed closely and that require the 24 hour availability of a physician: Recent extensive lumbar spine surgery with slow recovery with PNA post op and increased pain and CLL s/p 2 units since surgery for severe anemia will need close monitoring for decompensation Medical Issues: Bowel/Bladder Function, DVT Prophylaxis, Falls Precautions, Fluid/Electrolyte/Nutrition Balance, Infection Protection, Pain Management, Wound Care Brief Synthesis of Preadmission Screen, Post-Admission Evaluation, and Therapy Evaluations: PT OT will focus on regaining function with use of assistive devices in order to regain enough independence to return home with Medical Prognosis: Good Anticipated Length of Stay: 7 days NAHUM NAIK DO May 20, 2022 05:51
[2022-05-20 05:56] LABS: ALBUMIN 2.8 GM/DL (3.2-4.5); BILIRUBIN,TOTAL 1.1 MG/DL (0.1-1.0); CALCIUM 8.3 MG/DL (8.5-10.1); CREATININE SERUM 0.83 MG/DL (0.60-1.30); POTASSIUM 3.4 MMOL/L (3.6-5.0); TOTAL PROTEIN 5.3 GM/DL (6.4-8.2)
[2022-05-20] MEDS: VANCOMYCIN 1250 MG/NS 250 ML IVPB IV SCH ×4 (05:56→19:08)
[2022-05-20 07:35] VITALS: BP 157/75
--- NOTE | 2022-05-20 07:40 | Physician Query Clarification ---
PQ-Further Specificity Admission/Discharge Admission Date: May 19, 2022 at 14:10 Discharge Date: Dr. Mahmood, The medical record reflects the following clinical scenario: History/Risk Factors: Lumbar spinal stenosis w/myelopathy Clinical Findings: Motor Weakness (Lower extremities 4/5) Treatment: S/P L4-S1 TLIF/PSF Question: Can you further specify the highest degree of neurologic deficit upon IRF admissoin per the clinical indicators above? Please document a response in the Progress Notes or Discharge Summary. 1. Myelopathy 2. Neurogenic claudication 3. Radiculopathy 4. Weakness 5. Other, with explanation of the clinical findings. 6. Clinically undetermined, no explanation for the clinical findings. PHYSICIAN RESPONSE Can you specify per above: 2 In responding to this query, please exercise your independent professional judgment. The purpose of this communication is to more accurately reflect the complexity of your patients condition. The fact that a question is asked does not imply that any particular answer is desired or expected. Thank you for your timely response to this clarification. Requestors name: Archie THIS PHYSICIAN QUERY FORM IS A PERMANENT PART OF THE MEDICAL RECORD ARCHIE BARAHONA May 20, 2022 07:40 NAHUM MAHMOOD DO May 20, 2022 12:27
--- NOTE | 2022-05-20 07:57 | Occupational Ther Daily Note ---
OT Current Status-Daily Note Subjective Pt alert, lying in bed. Pt agrees to therapy. Pt c/o back and L foot pain rating different levels from 4-9/10, nrsg had already given pain meds. Mental Status/Objective Patient Orientation: Person, Confused, Time, Situation Attachments: IV Acute change in mental status: 0 Inattention: 0 Disorganized thinkin Altered level of consciousness: 0 ADL-Treatment Pt agrees to shower. Mod A for supine to EOB with log roll to maintain back precautions. Pt ambulated with CGA for safety using FWW to bathroom. CGA for toilet transfer. Max A for toileting hygiene and clothing manipulation. Pt initially sat on shower bench to take shower then stood to rinse off, education on back precautions and reminded pt to sit on shower bench to complete showering. Assist to cleanse lower legs and feet. Pt demonstrating confusion with how to complete ADL tasks though was able to get back on track with verbal cues. Set up for upper body dressing, max A don/doff brace. Max A for lower body dressing. Max A for footwear. Pt educated on using sock aide to don sock, able to complete with directions. Pt independent with eating. Pt is somewhat impulsive during transfers. After session, pt sitting in recliner with call light/phone in reach. All needs met in room. Therapy Code Descriptions/Definitions Functional [place] Measure: 0=Not Assessed/NA 4=Minimal Assistance 1=Total Assistance 5=Supervision or Setup 2=Maximal Assistance 6=Modified [place] 3=Moderate Assistance 7=Complete IndependenceSCALE: Activities may be completed with or without assistive devices. 0-Qnvjcealwb-uawmayv completes the activity by him/herself with no assistance from a helper. 5-Set-up or Clean-up Assistance-helper sets up or cleans up; patient completes activity. [place] assists only prior to or following the activity. 4-Supervision or Touching Assistance-helper provides verbal cues and/or touching/steadying and/or contact guard assistance as patient completes activity. Assistance may be provided throughout the activity or intermittently. 3-Partial/Moderate Assistance-helper does LESS THAN HALF the effort. [place] lifts, holds or supports trunk or limbs, but provides less than half the effort. 2-Substantial/Maximal Assistance-helper does MORE THAN HALF the effort. [place] lifts or holds trunk or limbs and provides more than half the effort. 5-Rglmlguej-jhucrd does ALL the effort. Patient does none of the effort to complete the activity. Or, the assistance of 2 or more helpers is required for the patient to complete the activity. If activity was not attempted, code reason: 7-Patient Refused. 9-Not Applicable-not attempted and the patient did not perform the activity before the current illness, exacerbation or injury. 10-Not Attempted due to Environmental Limitations-(lack of equipment, weather restraints, etc.). 88-Not Attempted due to Medical Conditions or Safety Concerns. Eating (QC): 6 Oral Hygiene (QC): 6 (Sitting at sink. Clinical judgment.) Shower/Bathe Self (QC): 3 Upper Body Dressing (QC): 2 (Set up shirt. Max A back brace.) Lower Body Dressing (QC): 2 On/Off Footwear: 2 Toileting Hygiene (QC): 2 Toilet Transfer (QC): 4 OT Short Term Goals Short Term Goals Time Frame: Jun 03, 2022 Shower/bathe self: 4 Lower body dressin Putting on/taking off footwear: [address] Conductor Goals Time Frame: Jun 17, 2022 Acute change in mental status: 0 Inattention: 0 Disorganized thinkin Altered level of consciousness: 0 Eating (QC): 6 Oral Hygiene (QC): 6 Toileting Hygiene (QC): 6 Shower/Bathe Self (QC): 5 Upper Body Dressing (QC): 6 Lower Body Dressing (QC): 6 On/Off Footwear (QC): 6 Additional Goals: 1-Demonstrate ADL Tasks, 2-Verbalize Understanding, 3- ImproveStrength/Rafal 1=Demonstrate adherence to instructed precautions during ADL tasks. 2=Patient will verbalize/demonstrate understanding of assistive devices/modifications for ADL. 3=Patient will improve strength/tolerance for activity to enable patient to perform ADL's. OT Education/Plan Problem List/Assessment Assessment: Decreased Activ Tolerance, Decreased Safety Aware, Decreased UE Strength, Impaired Bed Mobility, Impaired Cognition, Impaired Coordination, Impaired Funct Balance, Impaired Self-Care Skills Discharge Recommendations Plan/Recommendations: Continue POC Treatment Plan/Plan of Care Patient would benefit from OT for education, treatment and training to promote independence in ADL's, mobility, safety and/or upper extremity function for ADL's. Plan of Care: ADL Retraining, Functional Mobility, Group Exercise/Act as Ind, UE Funct Exercise/Act Treatment Duration: Jun 17, 2022 Frequency: At least 5 of 7 days/Wk (IRF) Estimated Hrs Per Day: 1.5 hours per day Agreement: Yes Rehab Potential: Good Time/GCodes Start Time: 06:50 Stop Time: 08:00 Total Time Billed (hr/min): 70 Billed Treatment Time 1 visit-ADL 5 (70 min) ISRAEL RILEY May 20, 2022 07:57
--- NOTE | 2022-05-20 08:26 | ST Cognitive Linguistic Eval ---
Speech Evaluation-General Medical Diagnosis L4-S1 TLIF Onset Date: May 19, 2022 Therapy Diagnosis Therapy Diagnosis: Impaired Neurocognitive Skills Precautions Precautions: Fall Precautions/Isolations: Fall Prevention, Standard Precautions Referral Referring Physician: Dr. Mahmood Reason for Referral: Evaluation/Treatment Medical History Current History The patient is a 77 year-old male with a past medical history of CLL, CKD, and gout, who presents to inpatient rehab due to slow recovery and in need of aggressive PT and OT in order to regain independence to return back home with following a L4-S1 TLIF. Reviewed History: Yes Social History Current Living Status: Spouse Speech PLF-Current Status Prior Level of Function The patient denied current challenges with his speech, cognition, or language. However, the patient's son is present at bedside who reported the patient has displayed reduced cognitive skills post anesthesia. Subjective The patient was reclined in his chair, awake and alert upon entrance to his room by the clinician. The patient greeted the clinician appropriately and was agreeable to participation in the cognitive linguistic assessment. The patient's son is present at bedside and remains for the evaluation. Language Eval: Auditory Comprehends Simple Yes/No Ques: Functional Indent/Objects Multiple Bowling: Functional Ident/Pics in Multiple Bowling: Functional Follows 1-Step Commands: Functional Follows General Conversations: Mild Language Eval: Verbal Language Completes Spontaneous Greeting: Functional Produces Auto, Serial Info: Functional Imitates Simple Words/Phrases: Functional Word Finding: Mild Requests Basic Needs: Functional States Basic Personal Info: Functional Language Evaluation: Writing Writes to Simple Dictation: Mild Cognitive Patient Orientation The patient was oriented to month and day of the week. The patient was not oriented to year. Objective Cognitive Domain Attention: Moderate Memory: Moderate Problem Solving: Moderate Executive Functions: Moderate Composite Severity Rating: Moderate Clock Drawing Severity Rating: Mild Objective Formal/Standardized Tests [facility] Mental Status Exam (UMS) Results The patient demonstrated a result of +14/30 correlating to a score of "dementia' per SLUMS. Oral Motor/Speech Production The patient does not display dysarthria or apraxia of speech. The patient is 100% intelligible in known and unknown contexts. Impression The patient demonstrated moderate cognitive deficits in the areas of memory, attention, and problem solving. Decreased response time was elicited with all questions asked by the clinician. Speech Patient Assess Expression of Ideas/Wants: Exhibits (3) Understanding Verbal Content: Usually Understands (3) Brief Interview-Mental Status: Yes Repetition of Three Words: Three (3) Temporal Orientation: Year: Missed by more than 5 yrs (0) Temporal Orientation: Month: Accurate within 5 days(2) Temporal Orientation: Day: Correct (1) Recall : Wear to say "Sock": Yes, no cue required (2) Recall : Color: Yes, after cueing (1) Recall : Bed: Yes,after cueing (1) Memory/Recall Ability: Current season, That he or she is in a hsp/hsp unit Speech Short Term Goals Short Term Goals Short Term Goals 1. The patient will demonstrate 80% accuracy with memory exercises, independently. Time Frame-STG: Seven Days. Speech Intermediate Goals Intermediate Goals 1. The patient will demonstrate improved cognitive linguistic function to safe discharge to the least restrictive environment. Time Frame: Two Weeks. Speech-Plan Treatment Plan Speech Therapy Treatment Plan: Continue Plan of Care Treatment Duration: Jun 03, 2022 Frequency: Modified Program (IRF) (Four to five times per week.) Estimated Hrs Per Day: .5 hour per day Rehab Potential: Good Safety Risks/Education Teaching Recipient: Patient, Family Teaching Methods: Discussion Response to Teaching: Verbalize Understanding Education Topics Provided: Results, Recommendations, Plan of Care Time Speech Therapy Time In: 09:30 Speech Therapy Time Out: 10:00 Total Billed Time: 30 Billed Treatment Time 1ADRIAN SPSNDCOMP No LOY, ELIZABETH ST May 20, 2022 08:26
[2022-05-20] MEDS: PANTOPRAZOLE 40 MG (PROTONIX) TAB PO SCH (09:00)
--- NOTE | 2022-05-20 10:12 | Occupational Ther Daily Note ---
OT Current Status-Daily Note Subjective Pt alert, sitting in recliner. Pt agrees to therapy. No c/o pain. Mental Status/Objective Acute change in mental status: 0 Inattention: 0 Disorganized thinkin Altered level of consciousness: 0 ADL-Treatment Pt demonstrates SOA throughout session and requires lengthy recovery break between tasks. Pt agrees to shower. Pt had donned one sock/shoe prior to CESPEDES entering room. Pt then doffed by self. Pt ambulated to bathroom using FWW with CGA. CGA for toilet/BSC transfer. Pt able to manipulate own clothing with CGA, no hygiene needed at that time. CGA to transfer in/out of shower using FWW, grabbars and shower bench. Pt completed shower in sitting 100% of the time, leans side to side to cleanse buttocks. Pt completed shower with supervision for safety. After set up, pt completes upper body dressing by self. After set up, pt able to thread feet into lower body clothing then CGA in standing to hike pants over hips. Pt had one LOB unable to regain balance, sat down hard on chair. Pt declines completing oral care since dentures are not here. After set up and using AE, pt able to don socks/shoes by self, doffs both without AE. After session, pt sitting in recliner with call light/phone in reach. Nrsg present in room. All needs met. Therapy Code Descriptions/Definitions Functional [place] Measure: 0=Not Assessed/NA 4=Minimal Assistance 1=Total Assistance 5=Supervision or Setup 2=Maximal Assistance 6=Modified [place] 3=Moderate Assistance 7=Complete IndependenceSCALE: Activities may be completed with or without assistive devices. 8-Hymhdmwrgv-iqcduhc completes the activity by him/herself with no assistance from a helper. 5-Set-up or Clean-up Assistance-helper sets up or cleans up; patient completes activity. [place] assists only prior to or following the activity. 4-Supervision or Touching Assistance-helper provides verbal cues and/or touching/steadying and/or contact guard assistance as patient completes activity. Assistance may be provided throughout the activity or intermittently. 3-Partial/Moderate Assistance-helper does LESS THAN HALF the effort. [place] lifts, holds or supports trunk or limbs, but provides less than half the effort. 2-Substantial/Maximal Assistance-helper does MORE THAN HALF the effort. [place] lifts or holds trunk or limbs and provides more than half the effort. 5-Nlwtlfgal-zomigh does ALL the effort. Patient does none of the effort to complete the activity. Or, the assistance of 2 or more helpers is required for the patient to complete the activity. If activity was not attempted, code reason: 7-Patient Refused. 9-Not Applicable-not attempted and the patient did not perform the activity before the current illness, exacerbation or injury. 10-Not Attempted due to Environmental Limitations-(lack of equipment, weather restraints, etc.). 88-Not Attempted due to Medical Conditions or Safety Concerns. Oral Hygiene (QC): 7 Shower/Bathe Self (QC): 4 Upper Body Dressing (QC): 5 Lower Body Dressing (QC): 4 On/Off Footwear: 4 Toilet Transfer (QC): 4 OT Short Term Goals Short Term Goals Time Frame: Jun 03, 2022 Shower/bathe self: 4 Lower body dressin Putting on/taking off footwear: 4 OT Residential Goals Dental Insurance Biller Goals Time Frame: Jun 17, 2022 Acute change in mental status: 0 Inattention: 0 Disorganized thinkin Altered level of consciousness: 0 Eating (QC): 6 Oral Hygiene (QC): 6 Toileting Hygiene (QC): 6 Shower/Bathe Self (QC): 5 Upper Body Dressing (QC): 6 Lower Body Dressing (QC): 6 On/Off Footwear (QC): 6 Additional Goals: 1-Demonstrate ADL Tasks, 2-Verbalize Understanding, 3- ImproveStrength/Rafal 1=Demonstrate adherence to instructed precautions during ADL tasks. 2=Patient will verbalize/demonstrate understanding of assistive iftikhar justino/modifications for ADL. 3=Patient will improve strength/tolerance for activity to enable patient to perform ADL's. OT Education/Plan Problem List/Assessment Assessment: Decreased Activ Tolerance, Decreased Safety Aware, Decreased UE Strength, Impaired Funct Balance, Impaired Self-Care Skills Discharge Recommendations Plan/Recommendations: Continue POC Treatment Plan/Plan of Care Patient would benefit from OT for education, treatment and training to promote independence in ADL's, mobility, safety and/or upper extremity function for ADL's. Plan of Care: ADL Retraining, Functional Mobility, Group Exercise/Act as Ind, UE Funct Exercise/Act Treatment Duration: Jun 17, 2022 Frequency: At least 5 of 7 days/Wk (IRF) Estimated Hrs Per Day: 1.5 hours per day Agreement: Yes Rehab Potential: Good Time/GCodes Start Time: 09:00 Stop Time: 10:00 Total Time Billed (hr/min): 60 Billed Treatment Time 1 visit-ADL 4 (60 min) ISRAEL RILEY May 20, 2022 10:12
[2022-05-20] MEDS: SERTRALINE 100 MG (ZOLOFT) TAB PO SCH (10:45)
[2022-05-20] MEDS: ALLOPURINOL 300 MG (ZYLOPRIM) TAB PO SCH (10:45)
[2022-05-20] MEDS: GABAPENTIN 100 MG (NEURONTIN) CAP PO SCH ×2 (10:45→20:23)
[2022-05-20] MEDS: FINASTERIDE (PROSCAR) 5 MG TAB PO SCH (10:45)
--- NOTE | 2022-05-20 11:31 | Occupational Ther Daily Note ---
OT Current Status-Daily Note Subjective Pt alert, sitting in recliner. Pt speaks only a few time during session, typically frowns when asked a question. Family present in room. Mental Status/Objective Patient Orientation: Person, Confused, Unable to Assess Attachments: IV Acute change in mental status: 0 Inattention: 0 Disorganized thinkin Altered level of consciousness: 0 ADL-Treatment Pt educated on using AE for donning/doffing footwear. Pt able to follow verbal directions with minimal physical cues to doff socks. Pt required verbal cues and gestural cues to use sock aide to don socks. Pt then requested to use bathroom. Pt impulsive to stand without shoes and attempted to refuse donning shoes over regular socks prior to walking. Pt then got to bathroom and lifted one hand off of FWW to bring penis out of shorts to stand and urinate before getting to the toilet. Pt then used only one hand to push FWW to toilet while preparing to urinate in standing, CESPEDES attempting to direct pt to complete safely, pt refused to listen. Pt could not problem solve how to move FWW and stand close to toilet to urinate, CESPEDES had to assist with positioning to avoid urinating on floor and clothing. Pt then adjusted own clothing and ambulated back to recliner. After therapy, pt sitting in recliner with call light/phone in reach. All needs met in room. Therapy Code Descriptions/Definitions Functional [place] Measure: 0=Not Assessed/NA 4=Minimal Assistance 1=Total Assistance 5=Supervision or Setup 2=Maximal Assistance 6=Modified [place] 3=Moderate Assistance 7=Complete IndependenceSCALE: Activities may be completed with or without assistive devices. 7-Gcconlejxw-zokcktt completes the activity by him/herself with no assistance from a helper. 5-Set-up or Clean-up Assistance-helper sets up or cleans up; patient completes activity. [place] assists only prior to or following the activity. 4-Supervision or Touching Assistance-helper provides verbal cues and/or touching/steadying and/or contact guard assistance as patient completes activity. Assistance may be provided throughout the activity or intermittently. 3-Partial/Moderate Assistance-helper does LESS THAN HALF the effort. [place] lifts, holds or supports trunk or limbs, but provides less than half the effort. 2-Substantial/Maximal Assistance-helper does MORE THAN HALF the effort. [place] lifts or holds trunk or limbs and provides more than half the effort. 1-Lbtclnkzn-dysble does ALL the effort. Patient does none of the effort to complete the activity. Or, the assistance of 2 or more helpers is required for the patient to complete the activity. If activity was not attempted, code reason: 7-Patient Refused. 9-Not Applicable-not attempted and the patient did not perform the activity before the current illness, exacerbation or injury. 10-Not Attempted due to Environmental Limitations-(lack of equipment, weather restraints, etc.). 88-Not Attempted due to Medical Conditions or Safety Concerns. On/Off Footwear: 3 Toileting Hygiene (QC): 3 Toilet Transfer (QC): 4 OT Short Term Goals Short Term Goals Time Frame: Jun 03, 2022 Shower/bathe self: 4 Lower body dressin Putting on/taking off footwear: 4 OT Electrical Technology Instructor Goals Electrical Technology Instructor Goals Time Frame: Jun 17, 2022 Acute change in mental status: 0 Inattention: 0 Disorganized thinkin Altered level of consciousness: 0 Eating (QC): 6 Oral Hygiene (QC): 6 Toileting Hygiene (QC): 6 Shower/Bathe Self (QC): 5 Upper Body Dressing (QC): 6 Lower Body Dressing (QC): 6 On/Off Footwear (QC): 6 Additional Goals: 1-Demonstrate ADL Tasks, 2-Verbalize Understanding, 3- ImproveStrength/Rafal 1=Demonstrate adherence to instructed precautions during ADL tasks. 2=Patient will verbalize/demonstrate understanding of assistive devices/modifications for ADL. 3=Patient will improve strength/tolerance for activity to enable patient to perform ADL's. OT Education/Plan Problem List/Assessment Assessment: Decreased Safety Aware, Impaired Cognition, Impaired Self-Care Skills Discharge Recommendations Plan/Recommendations: Continue POC Treatment Plan/Plan of Care Patient would benefit from OT for education, treatment and training to promote independence in ADL's, mobility, safety and/or upper extremity function for ADL's. Plan of Care: ADL Retraining, Functional Mobility, Group Exercise/Act as Ind, UE Funct Exercise/Act Treatment Duration: Jun 17, 2022 Frequency: At least 5 of 7 days/Wk (IRF) Estimated Hrs Per Day: 1.5 hours per day Agreement: Yes Rehab Potential: Good Time/GCodes Start Time: 11:00 Stop Time: 11:30 Total Time Billed (hr/min): 30 Billed Treatment Time 1 visit-ADL 2 (30 min) ISRAEL RILEY May 20, 2022 11:31
[2022-05-20] MEDS: SENNA W/DOCUSATE (SENOKOT S) TABLET PO SCH ×2 (12:00→21:00)
[2022-05-20] MEDS: polyethylene glycoL POWDER 17 GM (MIRALAX) PACK PO SCH ×2 (12:00→21:00)
[2022-05-20] MEDS: DOCUSATE SODIUM 100 MG (COLACE) CAP PO SCH ×2 (12:00→21:00)
[2022-05-20] MEDS ORDERED: BACLOFEN 10 MG (LIORESAL) TAB PO PRN (12:30)
[2022-05-20] MEDS ORDERED: CHLORASEPTIC SPRAY 177 ML LIQUID MC PRN (12:30)
--- NOTE | 2022-05-20 14:22 | Occupational Ther Daily Note ---
OT Current Status-Daily Note Subjective Pt in recliner with nursing staff, incontinent of urine and significant back pain. Pt did not rate pain, but pain impaired transfers and changing clothes during tx. Pt's daughter present and reports concerns of pt and being able to manage when pt discharges.The is a type 1 diabetic and doesn't take care of herself well when she is caring for the patient. Pain Numeric Pain Scale: 10-Worst Possible Pain Location: Lower Location Body Site: Back Mental Status/Objective Acute change in mental status: 0 Inattention: 0 Disorganized thinkin Altered level of consciousness: 0 ADL-Treatment Therapy Code Descriptions/Definitions Functional Max Measure: 0=Not Assessed/NA 4=Minimal Assistance 1=Total Assistance 5=Supervision or Setup 2=Maximal Assistance 6=Modified Max 3=Moderate Assistance 7=Complete IndependenceSCALE: Activities may be completed with or without assistive devices. 0-Qwcovyhgwm-tdxidyd completes the activity by him/herself with no assistance from a helper. 5-Set-up or Clean-up Assistance-helper sets up or cleans up; patient completes activity. [place] assists only prior to or following the activity. 4-Supervision or Touching Assistance-helper provides verbal cues and/or touching/steadying and/or contact guard assistance as patient completes activity. Assistance may be provided throughout the activity or intermittently. 3-Partial/Moderate Assistance-helper does LESS THAN HALF the effort. [place] lifts, holds or supports trunk or limbs, but provides less than half the effort. 2-Substantial/Maximal Assistance-helper does MORE THAN HALF the effort. [place] lifts or holds trunk or limbs and provides more than half the effort. 9-Bjyujtabk-xdkrfj does ALL the effort. Patient does none of the effort to complete the activity. Or, the assistance of 2 or more helpers is required for the patient to complete the activity. If activity was not attempted, code reason: 7-Patient Refused. 9-Not Applicable-not attempted and the patient did not perform the activity before the current illness, exacerbation or injury. 10-Not Attempted due to Environmental Limitations-(lack of equipment, weather restraints, etc.). 88-Not Attempted due to Medical Conditions or Safety Concerns. Other Treatment Nurse and nurse aide present during tx. Pt transferred from recliner to EOB, SPT, max A. Max A with changing shirt at EOB. Assist x2 for EOB to supine t ransfer. Dependent with changing soiled LE clothing and performing hygiene at bed level. Pt positioned in R side lying position with pillows to comfort, ice pack applied. Post tx, pt in bed, call light in reach and all needs met. Pt significantly limited by back pain during tx. Education OT Patient Education: Correct positioning, Energy conservation, Modified ADL techniques, Progress toward Goal/Update tx plan, Purpose of tx/functional activities, Rehab process, Safety issues Teaching Recipient: Patient Teaching Methods: Discussion Response to Teaching: Verbalize Understanding OT Short Term Goals Short Term Goals Time Frame: Jun 03, 2022 Shower/bathe self: 4 Lower body dressin Putting on/taking off footwear: 4 OT Half-Way Goals Driver Guide Goals Time Frame: Jun 17, 2022 Acute change in mental status: 0 Inattention: 0 Disorganized thinkin Altered level of consciousness: 0 Eating (QC): 6 Oral Hygiene (QC): 6 Toileting Hygiene (QC): 6 Shower/Bathe Self (QC): 5 Upper Body Dressing (QC): 6 Lower Body Dressing (QC): 6 On/Off Footwear (QC): 6 Additional Goals: 1-Demonstrate ADL Tasks, 2-Verbalize Understanding, 3-ImproveStrength/Rafal 1=Demonstrate adherence to instructed precautions during ADL tasks. 2=Patient will verbalize/demonstrate understanding of assistive devices/modifications for ADL. 3=Patient will improve strength/tolerance for activity to enable patient to perform ADL's. OT Education/Plan Problem List/Assessment Assessment: Decreased Activ Tolerance, Decreased UE Strength, Dependent Transfers, Impaired Bed Mobility, Impaired Funct Balance, Impaired I ADL's, Impaired Self-Care Skills Discharge Recommendations Plan/Recommendations: Continue POC Treatment Plan/Plan of Care Patient would benefit from OT for education, treatment and training to promote independence in ADL's, mobility, safety and/or upper extremity function for ADL's. Plan of Care: ADL Retraining, Functional Mobility, Group Exercise/Act as Ind, UE Funct Exercise/Act Treatment Duration: Jun 17, 2022 Frequency: At least 5 of 7 days/Wk (IRF) Estimated Hrs Per Day: 1.5 hours per day Agreement: Yes Rehab Potential: Good Time/GCodes Start Time: 13:50 Stop Time: 14:10 Total Time Billed (hr/min): 20 Billed Treatment Time 1, ADL BETTY CALI OT May 20, 2022 14:22
--- NOTE | 2022-05-20 14:26 | Physical Therapy Daily Note ---
PT Daily Note-Current Subjective Patient sitting in chair upon PT arrival, agreeable to treatment. Reports he is very sore from treatment yesterday and states, "You tried to kill me." Rates pain at 8-9/10 in low back. Pain Section J - Health Conditions 1. Rarely or not at all 2. Occasionally 3. Frequently 4. Almost constantly 8. Unable to answer Pain Effect on Sleep: 8 Pain Interference with Therapy: 9 Pain Interference w/Day-to-Day: 9 Mental Status Patient Orientation: Person Transfers SCALE: Activities may be completed with or without assistive devices. 7-Qfwprnjwhn-flbuxdd completes the activity by him/herself with no assistance from a helper. 5-Set-up or Clean-up Assistance-helper sets up or cleans up; patient completes activity. [place] assists only prior to or following the activity. 4-Supervision or Touching Assistance-helper provides verbal cues and/or touching/steadying and/or contact guard assistance as patient completes activity. Assistance may be provided throughout the activity or intermittently. 3-Partial/Moderate Assistance-helper does LESS THAN HALF the effort. Crane lifts, holds or supports trunk or limbs, but provides less than half the effort. 2-Substantial/Maximal Assistance-helper does MORE THAN HALF the effort. Crane lifts or holds trunk or limbs and provides more than half the effort. 6-Jqipuqxqy-kuttrk does ALL the effort. Patient does none of the effort to complete the activity. Or, the assistance of 2 or more helpers is required for the patient to complete the activity. If activity was not attempted, code reason: 7-Patient Refused. 9-Not Applicable-not attempted and the patient did not perform the activity before the current illness, exacerbation or injury. 10-Not Attempted due to Environmental Limitations-(lack of equipment, weather restraints, etc.). 88-Not Attempted due to Medical Conditions or Safety Concerns. Sit to Stand (QC): 3 Chair/Ooh-he-Ngksd Xfer(QC): 3 Weight Bearing Right Lower Extremity: Right Full Weight Bearing Left Lower Extremity: Left Full Weight Bearing Gait Training Does the Patient Walk?: Yes Distance: 150 feet, 150 feet Walk 10 feet (QC): 4 Walk 50 ft with 2 Turns(QC): 4 Walk 150 ft (QC): 3 Gait Assistive Device: FWW Exercises Supine Ex: Ankle pumps, Quad Set, Glut sets Supine Reps: 20 Seated Therapy Exercises: Long arc quads, Hip flexion, Hamstring Curls, Hip abd/add Seated Reps: 20 Assessment Current Status: Fair Progress Patient tolerated treatment fair. Reports increased pain and soreness. He performs LE therapeutic exercise as listed above. Patient ambulates 150 feet x 20 with FWW, with CGA/min A, and verbal cues for safety, progression, posture and balance. Patient ambulates with fair overall gait pattern, however does fatigue quickly and requires sitting rest break. Patient performs Nu Step, level 3 with UE/LEs x 10 minutes. Patient ambulates back to room and sits in chair post treatment with all needs met, nursing notified, call light in reach. PT Usp Goals Chief Sales Officer Goals PT Usp Goals Time Frame: Jun 03, 2022 Roll Left & Right (QC): 6 Sit to Lying (QC): 6 Lying-Sitting on Side/Bed(QC): 6 Sit to Stand (QC): 6 Chair/Zkh-sy-Ynpib Xfer(QC): 6 Toilet Transfer (QC): 6 Car Transfer (QC): 6 Does the Patient Walk: Yes Walk 10 feet (QC): 6 Walk 50ft with 2 Turns (QC): 6 Walk 150 ft (QC): 6 Walking 10ft on Uneven Surface: 6 1 Step (curb) (QC): 6 4 Steps (QC): 6 12 Steps (QC): 4 Picking up an Object (QC): 6 Does the Pt use WC or Scooter?: Yes Wheel 50 feet with 2 turns (QC: 6 Wheel 150 feet: 6 PT Plan Treatment/Plan Treatment Plan: Continue Plan of Care Treatment Plan: Bed Mobility, Education, Functional Activity Rafal, Functional Strength, Group Therapy, Gait, Safety, Therapeutic Exercise, Transfers Treatment Duration: Jun 24, 2022 Frequency: At least 5 of 7 days/Wk (IRF) Estimated Hrs Per Day: 1.5 hours per day Patient and/or Family Agrees t: Yes Safety Risks/Education Patient Education: Gait Training, Transfer Techniques Teaching Recipient: Patient Teaching Methods: Demonstration, Discussion Response to Teaching: Verbalize Understanding Time/GCodes Time In: 815 Time Out: 900 Total Billed Treatment Time: 45 Total Billed Treatment Visit, Gait (15), Ex (30) POLI MAC PT May 20, 2022 14:26
[2022-05-20] MEDS: cefTRIAXone 1 GM PRE-MIX 50 ML IV SCH (15:26)
[2022-05-20 20:00] VITALS: BP 155/81
[2022-05-20] MEDS: ALPRAZolam 0.25 MG (XANAX) TAB PO PRN (20:23)
[2022-05-20] MEDS: ACETAMINOPHEN 325 MG TABLET PO PRN (20:32)
[2022-05-20] MEDS: MICONAZOLE 2% POWDER (DESENEX AF) 90 GM TOP SCH (22:28)
[2022-05-21] MEDS: HYDROcodone/APAP 7.5 MG/325 MG (LORTAB, LORCET PLUS) TABLET PO PRN ×2 (03:45→09:18)
[2022-05-21] MEDS ORDERED: TROUGH ORDER-PHARMACY XX NR (05:00)
[2022-05-21] MEDS: VANCOMYCIN 1250 MG/NS 250 ML IVPB IV SCH ×2 (05:48)
--- NOTE | 2022-05-21 08:00 | PM&R Progress Note ---
Subjective HPI/CC On Admission Date Seen by Provider: May 21, 2022 Time Seen by Provider: 11:30 Subjective/Events-last exam 05/21/2022: 05/20/2022: Doing well Settling in Family at bedside Transfusion has helped the patient Pain improved Baclofen added BM+ Voiding well Review of Systems General: Fatigue, Malaise Focused Exam Lactate Level 05/21/22 10:19: Lactic Acid Level 1.59 Objective Exam Vital Signs Vital Signs Date Time Temp Pulse Resp B/P (MAP) Pulse Ox O2 Delivery O2 Flow Rate FiO2 05/21/22 14:00 37.1 05/21/22 09:59 Nasal Cannula 2.00 05/21/22 09:21 109 20 137/68 (91) 95 Capillary Refill : General Appearance: No Apparent Distress, WD/WN, Chronically ill HEENT: PERRL/EOMI, Normal ENT Inspection, Pharynx Normal Neck: Full Range of Motion, Normal Inspection, Non Tender, Supple, Carotid Bruit Respiratory: Chest Non Tender, Lungs Clear, Normal Breath Sounds, No Accessory Muscle Use, No Respiratory Distress, Decreased Breath Sounds Cardiovascular: Regular Rate, Rhythm, No Edema, No Gallop, No JVD, No Murmur, Normal Peripheral Pulses Gastrointestinal: Normal Bowel Sounds, No Organomegaly, No Pulsatile Mass, Non Tender, Soft Back: Normal Inspection, No CVA Tenderness, No Vertebral Tenderness Extremity: Normal Capillary Refill, Normal Inspection, Normal Range of Motion, Non Tender, No Calf Tenderness, No Pedal Edema Neurologic/Psychiatric: Alert, Oriented x3, protective signal installer helper II-XII Norm as Tested, Abnormal Gait, Depressed Affect, Motor Weakness (Lower extremities 4/5) Skin: Normal Color, Warm/Dry Lymphatic: No Adenopathy Results/Procedures Lab Laboratory Tests 05/21/22 10:19 Patient resulted labs reviewed. FIM Transfers Therapy Code Descriptions/Definitions Functional [place] Measure: 0=Not Assessed/NA 4=Minimal Assistance 1=Total Assistance 5=Supervision or Setup 2=Maximal Assistance 6=Modified [place] 3=Moderate Assistance 7=Complete IndependenceSCALE: Activities may be completed with or without assistive devices. 8-Xmgnfvvxgf-cfhokzq completes the activity by him/herself with no assistance from a helper. 5-Set-up or Clean-up Assistance-helper sets up or cleans up; patient completes activity. [place] assists only prior to or following the activity. 4-Supervision or Touching Assistance-helper provides verbal cues and/or touching/steadying and/or contact guard assistance as patient completes activity. Assistance may be provided throughout the activity or intermittently. 3-Partial/Moderate Assistance-helper does LESS THAN HALF the effort. [place] lifts, holds or supports trunk or limbs, but provides less than half the effort. 2-Substantial/Maximal Assistance-helper does MORE THAN HALF the effort. [place] lifts or holds trunk or limbs and provides more than half the effort. 8-Qizwmkvrh-ghkaoe does ALL the effort. Patient does none of the effort to complete the activity. Or, the assistance of 2 or more helpers is required for the patient to complete the activity. If activity was not attempted, code reason: 7-Patient Refused. 9-Not Applicable-not attempted and the patient did not perform the activity before the current illness, exacerbation or injury. 10-Not Attempted due to Environmental Limitations-(lack of equipment, weather restraints, etc.). 88-Not Attempted due to Medical Conditions or Safety Concerns. Roll Left to Right (QC): 4 Sit to Lying (QC): 3 Sit to Stand (QC): 3 Chair/Yie-dw-Bwyfs Xfer(QC): 3 Car Transfer (QC): 3 Gait Training Does the Patient Walk?: Yes Distance: 150 feet, 150 feet Walk 10 feet (QC): 4 Walk 50 ft with 2 Turns(QC): 4 Walk 150 ft (QC): 3 Walking 10ft/uneven surface-QC: 4 Gait Assistive Device: FWW Wheelchair Training Does the Pt Use a Wheelchair?: Yes Distance: 150 Wheel 50 ft with 2 turns (QC): 4 Wheel 150 ft (QC): 4 Type of Wheelchair: Manual Stair Training #of Steps: 4 1 Step (curb) (QC): 4 4 Steps (QC): 4 12 Steps (QC): 88 Balance Picking up an Object (QC): 4 (CGA using a marine firefighter) ADL-Treatment Eating (QC): 6 Oral Hygiene (QC): 7 Shower/Bathe Self (QC): 4 Upper Body Dressing (QC): 5 Lower Body Dressing (QC): 4 On/Off Footwear (QC): 3 Toileting Hygiene (QC): 3 Toilet Transfer (QC): 4 Assessment/Plan Assessment and Plan Assess & Plan/Chief Complaint Assessment: Debility following extensive lumbar spine decompression by Dr. CAPPS at [facility] Postoperative pneumonia Postoperative anemia requiring 1 unit of blood at [facility] and again on admit on 05/19/2022 at [facility] History of CLL with chronic leukocytosis CAD previous stent Hypertension Hyperlipidemia ANA Depression GERD Gout Plan: Complete IV antibiotics for pneumonia Pain control Home meds PT and OT 05/20/2022: Monitor closely Monitor hgb 05/21/2022: (1) Lumbar spinal stenosis NAHUM NAIK DO May 21, 2022 08:00
[2022-05-21 08:36] VITALS: BP 135/70
[2022-05-21] MEDS: PANTOPRAZOLE 40 MG (PROTONIX) TAB PO SCH (09:05)
[2022-05-21] MEDS: ALLOPURINOL 300 MG (ZYLOPRIM) TAB PO SCH (09:05)
[2022-05-21] MEDS: ACETAMINOPHEN 325 MG TABLET PO PRN ×2 (09:05→15:20)
[2022-05-21] MEDS: GABAPENTIN 100 MG (NEURONTIN) CAP PO SCH (09:05)
[2022-05-21] MEDS: SERTRALINE 100 MG (ZOLOFT) TAB PO SCH (09:12)
[2022-05-21] MEDS: FINASTERIDE (PROSCAR) 5 MG TAB PO SCH (09:12)
[2022-05-21] MEDS: MICONAZOLE 2% POWDER (DESENEX AF) 90 GM TOP SCH (09:13)
[2022-05-21] MEDS: SENNA W/DOCUSATE (SENOKOT S) TABLET PO SCH (09:13)
[2022-05-21] MEDS: polyethylene glycoL POWDER 17 GM (MIRALAX) PACK PO SCH (09:13)
[2022-05-21] MEDS: DOCUSATE SODIUM 100 MG (COLACE) CAP PO SCH (09:13)
[2022-05-21 09:21] VITALS: BP 137/68
[2022-05-21] MEDS ORDERED: NS IV 1000 ML 1,000 ML IV SCH (09:45)
--- NOTE | 2022-05-21 09:52 | Diagnostic Imaging Report ---
EXAMINATION: Chest radiograph, portable AP view. DATE: 05/21/2022 9:45 AM INDICATION: 77-year-old male, fever. Shortness of breath. COMPARISON: May 19, 2022. FINDINGS: Heart size and mediastinal contours are unchanged. The heart is likely enlarged. There is no identified pneumothorax. There is no large pleural effusion. There is no identified interval focal airspace consolidation. IMPRESSION: 1. Borderline cardiomegaly without identified acute cardiopulmonary abnormality. Dictated by: Dictated on workstation # [id number]
[2022-05-21 10:11] LABS: ABG BASE EXCESS -1.7 MMOL/L (-2.5-2.5); ABG OXYGEN SATURATION 97 % (94-100); ABG PCO2 42 MMHG (35-45); ABG PH 7.36 (7.37-7.43); ABG PO2 87 MMHG (79-93); ABG TCO2 23.6 MMOL/L (21.0-31.0); ALLENS TEST YES-POS; INSPIRED O2 2 L; VENTILATOR NO
[2022-05-21 10:12] LABS: PATIENT TEMP 102.9
[2022-05-21 10:33] LABS: BASOPHILS % (AUTO) 0 % (0-10)
[2022-05-21 10:35] LABS: BASOPHILS # (AUTO) 0.1 10^3/uL (0.0-0.1); EOSINOPHILS % (AUTO) 0 % (0-10); HEMATOCRIT 25 % (40-54); HEMOGLOBIN 7.7 g/dL (13.3-17.7); LYMPHOCYTES # (AUTO) 1.7 10^3/uL (1.0-4.0); LYMPHOCYTES % (AUTO) 5 % (12-44); MEAN CORPUSCULAR HEMOGLOBIN 27 pg (25-34); MEAN CORPUSCULAR HGB CONC 30 g/dL (32-36); MEAN CORPUSCULAR VOLUME 89 fL (80-99); MONOCYTES # (AUTO) 10.4 10^3/uL (0.0-1.0); MONOCYTES % (AUTO) 29 % (0-12); NEUTROPHILS # (AUTO) 21.3 10^3/uL (1.8-7.8); NEUTROPHILS % (AUTO) 59 % (42-75); PLATELET COUNT 66 10^3/uL (130-400)
[2022-05-21 10:37] LABS: WHITE BLOOD COUNT 36.3 10^3/uL (4.3-11.0)
[2022-05-21 10:43] LABS: ALBUMIN 2.9 GM/DL (3.2-4.5)
[2022-05-21 10:44] LABS: POTASSIUM 3.7 MMOL/L (3.6-5.0)
[2022-05-21 10:45] LABS: CALCIUM 8.4 MG/DL (8.5-10.1)
[2022-05-21 10:46] LABS: TOTAL PROTEIN 5.4 GM/DL (6.4-8.2)
[2022-05-21 10:48] LABS: BILIRUBIN,TOTAL 1.5 MG/DL (0.1-1.0)
[2022-05-21 10:50] LABS: CREATININE SERUM 0.81 MG/DL (0.60-1.30)
[2022-05-21] MEDS ORDERED: MEROPENEM 1,000 MG in NS (IVPB) 100 ML IV SCH (12:00)
[2022-05-21] MEDS ORDERED: LIDOCAINE UROJET 2% GEL 10 ML PKG ONE (12:22)
[2022-05-21] MEDS ORDERED: ANID100V2 IV (12:46)
[2022-05-21] MEDS ORDERED: OXC5T PO (12:46)
[2022-05-21] MEDS ORDERED: BACL10TA PO (12:46)
[2022-05-21] MEDS ORDERED: VANC1PIG IV (12:46)
[2022-05-21] MEDS ORDERED: MERO1PIG IV (12:46)
[2022-05-21] MEDS ORDERED: TRM50T PO (12:46)
[2022-05-21] MEDS ORDERED: HYDR-34 PO (12:46)
--- NOTE | 2022-05-21 12:48 | Discharge Summary ---
Diagnosis/Chief Complaint Date of Admission May 19, 2022 at 14:10 Date of Discharge Discharge Date: May 21, 2022 Discharge Diagnosis Assessment: Fever of unknown source of 39.3 with clinical decline requiring transfer to higher level to [facility] for infectious disease and Dr. CAPPS evaluation placed on broad-spectrum antibiotics of meropenem, vancomycin, Eraxis after pancultured Debility following extensive lumbar spine decompression by Dr. CAPPS at [facility] Postoperative pneumonia Postoperative anemia requiring 1 unit of blood at [facility] and again on admit on 05/19/2022 at [facility] History of CLL with chronic leukocytosis CAD previous stent Hypertension Hyperlipidemia ANA Depression GERD Gout Plan: Complete IV antibiotics for pneumonia Pain control Home meds PT and OT 05/20/2022: Monitor closely Monitor hgb Discharge Summary Discharge Physical Examination Allergies: Coded Allergies: No Known Drug Allergies (Unverified , 05/19/22) Vitals & I&Os Vital Signs Date Time Temp Pulse Resp B/P (MAP) Pulse Ox O2 Delivery O2 Flow Rate FiO2 05/21/22 22:59 36.3 95 24 134/63 99 Nasal Cannula 2.00 General Appearance: Alert, Oriented X3, Cooperative, Other (Lethargic) Respiratory: Clear to Auscultation Cardiovascular: Regular Rate Hospital Course Was the Problem List Reviewed?: Yes Patient had a short hospital course after he was admitted from [facility] after extensive lumbar spine surgery by Dr. CAPPS. He initially did very well participating in all therapy but fever continued with unknown source since chest x-ray and UA were normal and cultures from [facility] were negative and had just finished vancomycin and Rocephin for possible aspiration pneumonia but chest x-ray repeat on admit was normal so patient was placed on gentle IV fluids broad-spectrum antibiotics of meropenem, Vancomycin and Eraxis to cover for fungemia due to her procalcitonin is 0.53 but lactic acid was normal and the decision was made after in-depth discussion with Dr. CAPPS and the family to transfer to [facility] which had no beds but then [facility] accepted the patient and he was transported there by EMS. Labs (last 24 hrs) Laboratory Tests 05/19/22 18:12: White Blood Count 31.4*H, Red Blood Count 2.38L, Hemoglobin 6.8*L, Hematocrit 23L, Mean Corpuscular Volume 96, Mean Corpuscular Hemoglobin 29, Mean Corpuscular Hemoglobin Concent 30L, Red Cell Distribution Width 17.6H, Platelet Count 34*L, Mean Platelet Volume , Immature Granulocyte % (Auto) 6, Neutrophils (%) (Auto) 68, Lymphocytes (%) (Auto) 5L, Monocytes (%) (Auto) 21H, Eosinophils (%) (Auto) 0, Basophils (%) (Auto) 0, Neutrophils # (Auto) 21.3H, Lymphocytes # (Auto) 1.6, Monocytes # (Auto) 6.7H, Eosinophils # (Auto) 0.0, Basophils # (Auto) 0.1, Immature Granulocyte # (Auto) 1.7H, Neutrophils % (Manual) 80, Lymphocytes % (Manual) 4, Monocytes % (Manual) 13, Eosinophils % (Manual) 1, Band Neutrophils 2, Percent Immature Platelet Fraction 30.1H, Hypochromasia MARKED, Tami Cells MODERATE, Elliptocytes MARKED, Sodium Level 141, Potassium Level 3.4L, Chloride Level 110H, Carbon Dioxide Level 23, Anion Gap 8, Blood Urea Nitrogen 13, Creatinine 0.81, Estimat Glomerular Filtration Rate 92, BUN/Creatinine Ratio 16, Glucose Level 96, Calcium Level 8.2L, Corrected Calcium 9.1, Total Bilirubin 0.9, Aspartate Amino Transf (AST/SGOT) 14, Alanine Aminotransferase (ALT/SGPT) 10, Alkaline Phosphatase 70, Total Protein 5.2L, Albumin 2.9L 05/20/22 05:31: White Blood Count 27.3H, Red Blood Count 2.79L, Hemoglobin 7.6L, Hematocrit 25L, Mean Corpuscular Volume 89, Mean Corpuscular Hemoglobin 27, Mean Corpuscular Hemoglobin Concent 31L, Red Cell Distribution Width 23.9H, Platelet Count 43L, Mean Platelet Volume , Immature Granulocyte % (Auto) 9, Neutrophils (%) (Auto) 62, Lymphocytes (%) (Auto) 7L, Monocytes (%) (Auto) 22H, Eosinophils (%) (Auto) 0, Basophils (%) (Auto) 0, Neutrophils # (Auto) 16.9H, Lymphocytes # (Auto) 1.8, Monocytes # (Auto) 6.1H, Eosinophils # (Auto) 0.0, Basophils # (Auto) 0.1, Immature Granulocyte # (Auto) 2.4H, Percent Immature Platelet Fraction 29.6H, Sodium Level 139, Potassium Level 3.4L, Chloride Level 109H, Carbon Dioxide Level 20L, Anion Gap 10, Blood Urea Nitrogen 13, Creatinine 0.83, Estimat Glomerular Filtration Rate 91, BUN/Creatinine Ratio 16, Glucose Level 87, Calcium Level 8.3L, Corrected Calcium 9.3, Total Bilirubin 1.1H, Aspartate Amino Transf (AST/SGOT) 12, Alanine Aminotransferase (ALT/SGPT) 12, Alkaline Phosphatase 70, Total Protein 5.3L, Albumin 2.8L 05/21/22 05:00: Vancomycin Level Trough 15.7 05/21/22 10:10: Blood Gas Puncture Site RIGHT RADIAL, Blood Gas Patient Temperature 102.9, Arterial Blood pH 7.36L, Arterial Blood Partial Pressure CO2 42, Arterial Blood Partial Pressure O2 87, Arterial Blood HCO3 22L, Arterial Blood Total CO2 23.6, Arterial Blood Oxygen Saturation 97, Arterial Blood Base Excess -1.7, Jeremi Test YES-POS, Blood Gas Ventilator Setting NO, Blood Gas Inspired Oxygen 2 L 05/21/22 10:19: White Blood Count 36.3*H, Red Blood Count 2.85L, Hemoglobin 7.7L, Hematocrit 25L , Mean Corpuscular Volume 89, Mean Corpuscular Hemoglobin 27, Mean Corpuscular Hemoglobin Concent 30L, Red Cell Distribution Width 23.2H, Platelet Count 66L, Mean Platelet Volume , Immature Granulocyte % (Auto) 8, Neutrophils (%) (Auto) 59, Lymphocytes (%) (Auto) 5L, Monocytes (%) (Auto) 29H, Eosinophils (%) (Auto) 0, Basophils (%) (Auto) 0, Neutrophils # (Auto) 21.3H, Lymphocytes # (Auto) 1.7, Monocytes # (Auto) 10.4H, Eosinophils # (Auto) 0.0, Basophils # (Auto) 0.1, Immature Granulocyte # (Auto) 2.8H, Percent Immature Platelet Fraction 30.2H, Sodium Level 137, Potassium Level 3.7, Chloride Level 105, Carbon Dioxide Level 20L, Anion Gap 12, Blood Urea Nitrogen 12, Creatinine 0.81, Estimat Glomerular Filtration Rate 92, BUN/Creatinine Ratio 15, Glucose Level 116H, Lactic Acid Level 1.59, Calcium Level 8.4L, Corrected Calcium 9.3, Total Bilirubin 1.5H, Aspartate Amino Transf (AST/SGOT) 14, Alanine Aminotransferase (ALT/SGPT) 10, Alkaline Phosphatase 101, Total Protein 5.4L, Albumin 2.9L, Procalcitonin 0.53H 05/21/22 12:50: Urine Color ORANGE, Urine Clarity SL CLOUDY, Urine pH 5.5, Urine Specific [place] 1.025H, Urine Protein 2+H, Urine Glucose (UA) NEGATIVE, Urine Ketones NEGATIVE, Urine Nitrite NEGATIVE, Urine Bilirubin NEGATIVE, Urine Urobilinogen 0.2, Urine Leukocyte Esterase NEGATIVE, Urine RBC (Auto) 1+H, Urine RBC 2-5H, Urine WBC 0-2, Urine Crystals PRESENTH, Urine Amorphous Sediment LARGE CHESTER URATESH, Urine Bacteria NEGATIVE, Urine Casts PRESENT, Urine Hyaline Casts 0-2H, Urine Granular Casts 0-2H, Urine Mucus NEGATIVE, Urine Culture Indicated NO Pending Labs Laboratory Tests 05/19/22 18:12: White Blood Count 31.4, Red Blood Count 2.38, Hemoglobin 6.8, Hematocrit 23, Mean Corpuscular Volume 96, Mean Corpuscular Hemoglobin 29, Mean Corpuscular Hemoglobin Concent 30, Red Cell Distribution Width 17.6, Platelet Count 34, Mean Platelet Volume , Immature Granulocyte % (Auto) 6, Neutrophils (%) (Auto) 68, Lymphocytes (%) (Auto) 5, Monocytes (%) (Auto) 21, Eosinophils (%) (Auto) 0, Basophils (%) (Auto) 0, Neutrophils # (Auto) 21.3, Lymphocytes # (Auto) 1.6, Monocytes # (Auto) 6.7, Eosinophils # (Auto) 0.0, Basophils # (Auto) 0.1, Immature Granulocyte # (Auto) 1.7, Neutrophils % (Manual) 80, Lymphocytes % (Manual) 4, Monocytes % (Manual) 13, Eosinophils % (Manual) 1, Band Neutrophils 2, Percent Immature Platelet Fraction 30.1, Hypochromasia MARKED, Tami Cells MODERATE, Elliptocytes MARKED, Sodium Level 141, Potassium Level 3.4, Chloride Level 110, Carbon Dioxide Level 23, Anion Gap 8, Blood Urea Nitrogen 13, Creatinine 0.81, Estimat Glomerular Filtration Rate 92, BUN/Creatinine Ratio 16, Glucose Level 96, Calcium Level 8.2, Corrected Calcium 9.1, Total Bilirubin 0.9, Aspartate Amino Transf (AST/SGOT) 14, Alanine Aminotransferase (ALT/SGPT) 10, Alkaline Phosphatase 70, Total Protein 5.2, Albumin 2.9 05/20/22 05:31: White Blood Count 27.3, Red Blood Count 2.79, Hemoglobin 7.6, Hematocrit 25, Mean Corpuscular Volume 89, Mean Corpuscular Hemoglobin 27, Mean Corpuscular Hemoglobin Concent 31, Red Cell Distribution Width 23.9, Platelet Count 43, Mean Platelet Volume , Immature Granulocyte % (Auto) 9, Neutrophils (%) (Auto) 62, Lymphocytes (%) (Auto) 7, Monocytes (%) (Auto) 22, Eosinophils (%) (Auto) 0, Basophils (%) (Auto) 0, Neutrophils # (Auto) 16.9, Lymphocytes # (Auto) 1.8, Monocytes # (Auto) 6.1, Eosinophils # (Auto) 0.0, Basophils # (Auto) 0.1, Immature Granulocyte # (Auto) 2.4, Percent Immature Platelet Fraction 29.6, Sodium Level 139, Potassium Level 3.4, Chloride Level 109, Carbon Dioxide Level 20, Anion Gap 10, Blood Urea Nitrogen 13, Creatinine 0.83, Estimat Glomerular Filtration Rate 91, BUN/Creatinine Ratio 16, Glucose Level 87, Calcium Level 8.3, Corrected Calcium 9.3, Total Bilirubin 1.1, Aspartate Amino Transf (AST/SGOT) 12, Alanine Aminotransferase (ALT/SGPT) 12, Alkaline Phosphatase 70, Total Protein 5.3, Albumin 2.8 05/21/22 05:00: Vancomycin Level Trough 15.7 05/21/22 10:10: Blood Gas Puncture Site RIGHT RADIAL, Blood Gas Patient Temperature 102.9, Arterial Blood pH 7.36, Arterial Blood Partial Pressure CO2 42, Arterial Blood Partial Pressure O2 87, Arterial Blood HCO3 22, Arterial Blood Total CO2 23.6, Arterial Blood Oxygen Saturation 97, Arterial Blood Base Excess -1.7, Jeremi Test YES-POS, Blood Gas Ventilator Setting NO, Blood Gas Inspired Oxygen 2 L 05/21/22 10:19: White Blood Count 36.3, Red Blood Count 2.85, Hemoglobin 7.7, Hematocrit 25, Mean Corpuscular Volume 89, Mean Corpuscular Hemoglobin 27, Mean Corpuscular Hemoglobin Concent 30, Red Cell Distribution Width 23.2, Platelet Count 66, Mean Platelet Volume , Immature Granulocyte % (Auto) 8, Neutrophils (%) (Auto) 59, Lymphocytes (%) (Auto) 5, Monocytes (%) (Auto) 29, Eosinophils (%) (Auto) 0, Basophils (%) (Auto) 0, Neutrophils # (Auto) 21.3, Lymphocytes # (Auto) 1.7, Monocytes # (Auto) 10.4, Eosinophils # (Auto) 0.0, Basophils # (Auto) 0.1, Immature Granulocyte # (Auto) 2.8, Percent Immature Platelet Fraction 30.2, Sodium Level 137, Potassium Level 3.7, Chloride Level 105, Carbon Dioxide Level 20, Anion Gap 12, Blood Urea Nitrogen 12, Creatinine 0.81, Estimat Glomerular Filtration Rate 92, BUN/Creatinine Ratio 15, Glucose Level 116, Lactic Acid Level 1.59, Calcium Level 8.4, Corrected Calcium 9.3, Total Bilirubin 1.5, Aspartate Amino Transf (AST/SGOT) 14, Alanine Aminotransferase (ALT/SGPT) 10, Alkaline Phosphatase 101, Total Protein 5.4, Albumin 2.9, Procalcitonin 0.53 05/21/22 12:50: Urine Color ORANGE, Urine Clarity SL CLOUDY, Urine pH 5.5, Urine Specific [place] 1.025, Urine Protein 2+, Urine Glucose (UA) NEGATIVE, Urine Ketones NEGATIVE, Urine Nitrite NEGATIVE, Urine Bilirubin NEGATIVE, Urine Urobilinogen 0.2, Urine Leukocyte Esterase NEGATIVE, Urine RBC (Auto) 1+, Urine RBC 2-5, Urine WBC 0-2, Urine Crystals PRESENT, Urine Amorphous Sediment LARGE CHESTER URATES, Urine Bacteria NEGATIVE, Urine Casts PRESENT, Urine Hyaline Casts 0-2, Urine Granular Casts 0-2, Urine Mucus NEGATIVE, Urine Culture Indicated NO Discharge Home Medications: Active Scripts Active Tramadol HCl 50 Mg Tablet 50 Mg PO TID PRN 7 Days Oxyir Tablet (Oxycodone HCl) 5 Mg Tab 5 Mg PO Q4H PRN 7 Days HYDROcodone/APAP 7.5/325 TAB (Acetaminophen/Hydrocodone Bitart) 1 Ea Tablet 1 Ea PO Q4H PRN 7 Days Baclofen 10 Mg Tablet 10 Mg PO Q6H PRN 7 Days Eraxis (Water Diluent) (Anidulafungin) 100 Mg Vial 100 Mg IV DAILY 7 Days Meropenem-0.9% NaCl 1 Gram/50 (Meropenem-0.9% Sodium Chloride) 1 Gram/50 Ml Piggyback 1 Gm IV Q8H 7 Days Vancomycin 1 Gram/200 ml Bag (Vancomycin/Water For Inj (Peg)) 1 Gram/200 Ml Piggyback 1 Gm IV Q12H 7 Days Reported Sertraline HCl 100 Mg Tablet 100 Mg PO DAILY Pantoprazole Sodium 40 Mg Tablet.dr 40 Mg PO DAILY Gabapentin 100 Mg Capsule 100 Mg PO BID Finasteride 5 Mg Tablet 5 Mg PO DAILY Allopurinol 300 Mg Tablet 300 Mg PO DAILY Instructions to patient/family Please see electronic discharge instructions given to patient. Diagnosis/Problems Diagnosis/Problems (1) Lumbar spinal stenosis NAHUM NAIK DO May 21, 2022 12:48
[2022-05-21] MEDS ORDERED: ANIDULAFUNGIN INJECTION 200 MG in NS (IVPB) 250 ML IV ONE (13:00)
--- NOTE | 2022-05-21 13:06 | Diagnostic Imaging Report ---
PROCEDURE: CT head without contrast. TECHNIQUE: Multiple contiguous axial images were obtained through the brain without the use of intravenous contrast. Auto Exposure Controls were utilized during the CT exam to meet ALARA standards for radiation dose reduction. DATE: May 21, 2022. COMPARISON: None. INDICATION: 77-year-old male, altered mental status. Recent back surgery. 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 There are areas of low-attenuation in the subcortical and periventricular white matter which are nonspecific but most likely reflect prominent findings of chronic small vessel ischemic disease. There is no hydrocephalus. There is no mass effect or midline shift. There is no acute intracranial hemorrhage. There is no abnormal extra-axial fluid collection. The visualized portions of the paranasal sinuses, mastoid air cells and middle ears are well aerated. IMPRESSION: 1. No identified acute intracranial abnormality. 2. 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 3. Probable extensive findings of chronic small vessel ischemic disease. Dictated by: Dictated on workstation # [id number]
[2022-05-21 13:13] LABS: BILIRUBIN,URINE NEGATIVE (NEGATIVE); CLARITY,URINE SL CLOUDY; COLOR,URINE ORANGE; GLUCOSE, URINE (UA) NEGATIVE (NEGATIVE); KETONES,URINE NEGATIVE (NEGATIVE); LEUKOCYTE ESTERASE ,URINE NEGATIVE (NEGATIVE); NITRITE,URINE NEGATIVE (NEGATIVE); PH,URINE 5.5 (5-9); PROTEIN,URINE 2+ (NEGATIVE); WBC,URINE 0-2 /HPF
[2022-05-21 13:14] LABS: AMORPHOUS SEDIMENT,UR LARGE AMOR URATES /LPF; BACTERIA,URINE NEGATIVE /HPF; GRANULAR CASTS,URINE 0-2 /LPF; HYALINE CASTS, URINE 0-2 /LPF
--- NOTE | 2022-05-21 13:31 | Diagnostic Imaging Report ---
PROCEDURE: CT lumbar spine without contrast. TECHNIQUE: Multiple contiguous axial images were obtained through the lumbar spine without the use of intravenous contrast. Sagittal and coronal reformations were then performed. Auto Exposure Controls were utilized during the CT exam to meet ALARA standards for radiation dose reduction. INDICATION: Fever after recent surgery. FINDINGS: There appear to be small bilateral pleural effusions. There are postsurgical changes of the posterior lumbar instrumentation from L4 through S1 with bilateral pedicle screws and rods. Mechanical spacers are seen in the L4-L5 and L5-S1 disc spaces. There is no spondylolysis or spondylolisthesis. No fractures are identified. The aorta is nonaneurysmal. Note is made of horseshoe kidney. There is no abnormal fluid collection or mass. IMPRESSION: Stable postsurgical changes of lower lumbar fusion as described. Small bilateral pleural effusions. Otherwise some diffuse lumbar spondylosis without acute fracture Horseshoe kidney. Dictated by: Dictated on workstation # [id number]
[2022-05-21] MEDS ORDERED: VANCOMYCIN INJECTION 1,000 MG in NS (IVPB) 250 ML IV SCH (18:00)
[2022-05-21 19:40] VITALS: BP 134/63
[2022-05-21] MEDS: ALPRAZolam 0.25 MG (XANAX) TAB PO PRN (19:47)
[2022-05-21 22:59] VITALS: BP 134/63
[2022-05-22] MEDS ORDERED: ANIDULAFUNGIN INJECTION 100 MG in NS (IVPB) 100 ML IV SCH (09:00)
[2022-05-23] MEDS ORDERED: TROUGH ORDER-PHARMACY XX ONE (05:00)
--- NOTE | 2022-05-23 08:18 | Therapy Team Discharge Summary ---
Therapy Discharge Summary Discharge Recommendations Date of Discharge May 21, 2022 at 20:10 Physical Therapy Roll Left to Right (QC): 4 Sit to Lying (QC): 3 Lying to Sitting/Side of Bed(Q: 3 Sit to Stand (QC): 3 Chair/Sah-hf-Zhchj Xfer(QC): 3 Toilet Transfer (QC): 1 Car Transfer (QC): 3 Does the Patient Walk: Yes Mode of Locomotion: Walk Anticipated Mode of Locomotion: Walk Walk 10 feet (QC): 4 Walk 50 ft with 2 Turns(QC): 4 Walk 150 ft (QC): 3 Walking 10ft on uneven surface: 4 Distance: 250 feet Gait Assistive Device: FWW Does the Pt Use a Wheelchair: Yes Wheelchair Distance: 150 Wheel 50 ft with 2 turns (QC): 4 Wheel 150 ft (QC): 4 Type of Wheelchair: Manual #of Steps: 4 1 Step (curb) (QC): 4 4 Steps (QC): 4 12 Steps (QC): 88 Balance Sitting Static: Good Balance Sitting Dynamic: Fair Balance-Standing Static: Fair Picking up an Object (QC): 4 (CGA using a turnstile attendant) Occupational Therapy Decreased Activ Tolerance, Decreased UE Strength, Dependent Transfers, Impaired Bed Mobility, Impaired Funct Balance, Impaired I ADL's, Impaired Self-Care Skills Eating (QC): 6 Oral Hygiene (QC): 7 Shower/Bathe Self (QC): 4 Upper Body Dressing (QC): 5 Lower Body Dressing (QC): 4 On/Off Footwear (QC): 3 Toileting Hygiene (QC): 3 Speech-Language Pathology Due to acute medical concerns, the patient was transferred to [facility] for a higher level of care. Prior to discharge, the patient received a speech path ology evaluation, only. ST to discharge the patient from skilled services at this time. PT Fdc Goals Fdc Goals PT Fdc Goals Time Frame: Jun 03, 2022 Scoring Section J - Health Conditions 1. Rarely or not at all 2. Occasionally 3. Frequently 4. Almost constantly 8. Unable to answer Pain Effect on Sleep: 2 Pain Interference with Therapy: 2 Pain Interference w/Day-to-Day: 2 Roll Left to Right (QC): 6 Sit to Lying (QC): 6 Lying-Sitting on Side/Bed(QC): 6 Sit to Stand (QC): 6 Chair/Kqi-av-Yadal Xfer(QC): 6 Car Transfer (QC): 6 Does the Patient Walk: Yes Gait (FIM): 3 Gait distance (FIM): 3=150 ft Walk 10 feet (QC): 6 Walk 10ft-Uneven Surface(QC): 6 Walk 50ft with 2 Turns (QC): 6 Walk 150 ft (QC): 6 Gait Assistive Device: FWW Does the Pt use WC or Scooter?: Yes Wheelchair (FIM): 3 Wheelchair Level of Assist: 6 Wheel 50 feet with 2 turns (QC: 6 Stairs (FIM): 6 1 Step (curb) (QC): 6 4 Steps (QC): 6 12 Steps (QC): 4 Stairs Level Of Assist: 6 Picking up an Object (QC): 6 OT Fdc Goals Tempering Machine Operator Goals Time Frame: Jun 17, 2022 Acute change in mental status: 0 Inattention: 0 Disorganized thinkin Altered level of consciousness: 0 Eating (QC): 6 Oral Hygiene (QC): 6 Toileting Hygiene (QC): 6 Shower/Bathe Self (QC): 5 Upper Body Dressing (QC): 6 Lower Body Dressing (QC): 6 On/Off Footwear (QC): 6 Additional Goals: 1-Demonstrate ADL Tasks, 2-Verbalize Understanding, 3- ImproveStrength/Rafal 1=Demonstrate adherence to instructed precautions during ADL tasks. 2=Patient will verbalize/demonstrate understanding of assistive devices/modifications for ADL. 3=Patient will improve strength/tolerance for activity to enable patient to perform ADL's. Speech Fdc Goals Fdc Goals 1. The patient will demonstrate improved cognitive linguistic function to safe discharge to the least restrictive environment. Due to acute medical concerns, the patient was transferred to [facility] for a higher level of care. Prior to discharge, the patient received a speech pathology evaluation, only. ST to discharge the patient from skilled services at this time. Time Frame: Two Weeks. BENNETT LANGLEY May 23, 2022 08:18
--- NOTE | 2022-05-23 10:45 | Therapy Team Discharge Summary ---
Therapy Discharge Summary Discharge Recommendations Date of Discharge May 21, 2022 at 20:10 Physical Therapy Patient came to rehab post L4-S1 TLIF. Upon evaluation patient performed rolling with SBA, supine <-> sit min/mod assist, sit <-> stand min/mod assist, transfers min/mod assist, ambulated 250' with a rolling walker with min/mod assist (including 50' with at least 2 turns of 90 degrees but ambulated 10' over an uneven surface with CGA/SBA), propelled a manual WC 150' with SBA, can went up and down 4 steps using 2 handrails with CGA/SBA. Patient has been performing bed mobility and transfer training, balance and endurance training, functional strengthening, stair training, gait training, and education. Patient had to be transferred to a different facility due to medical complications. Last QC check was not performed. Patient will be discharged from PT at this time. Roll Left to Right (QC): 4 Sit to Lying (QC): 3 Lying to Sitting/Side of Bed(Q: 3 Sit to Stand (QC): 3 Chair/Lwi-nc-Hyijc Xfer(QC): 3 Toilet Transfer (QC): 1 Car Transfer (QC): 3 Does the Patient Walk: Yes Mode of Locomotion: Walk Anticipated Mode of Locomotion: Walk Walk 10 feet (QC): 4 Walk 50 ft with 2 Turns(QC): 4 Walk 150 ft (QC): 3 Walking 10ft on uneven surface: 4 Distance: 250 feet Gait Assistive Device: FWW Does the Pt Use a Wheelchair: Yes Wheelchair Distance: 150 Wheel 50 ft with 2 turns (QC): 4 Wheel 150 ft (QC): 4 Type of Wheelchair: Manual #of Steps: 4 1 Step (curb) (QC): 4 4 Steps (QC): 4 12 Steps (QC): 88 Balance Sitting Static: Good Balance Sitting Dynamic: Fair Balance-Standing Static: Fair Picking up an Object (QC): 4 (CGA using a service shop foreman) Occupational Therapy Decreased Activ Tolerance, Decreased UE Strength, Dependent Transfers, Impaired Bed Mobility, Impaired Funct Balance, Impaired I ADL's, Impaired Self-Care Skills Eating (QC): 6 Oral Hygiene (QC): 7 Shower/Bathe Self (QC): 4 Upper Body Dressing (QC): 5 Lower Body Dressing (QC): 4 On/Off Footwear (QC): 3 Toileting Hygiene (QC): 3 PT Roll Grinder Operator Goals Snf Goals PT Roll Grinder Operator Goals Time Frame: Jun 03, 2022 Scoring Section J - Health Conditions 1. Rarely or not at all 2. Occasionally 3. Frequently 4. Almost constantly 8. Unable to answer Pain Effect on Sleep: 2 Pain Interference with Therapy: 2 Pain Interference w/Day-to-Day: 2 Roll Left to Right (QC): 6 Sit to Lying (QC): 6 Lying-Sitting on Side/Bed(QC): 6 Sit to Stand (QC): 6 Chair/Qep-ks-Yufww Xfer(QC): 6 Car Transfer (QC): 6 Does the Patient Walk: Yes Gait (FIM): 3 Gait distance (FIM): 3=150 ft Walk 10 feet (QC): 6 Walk 10ft-Uneven Surface(QC): 6 Walk 50ft with 2 Turns (QC): 6 Walk 150 ft (QC): 6 Gait Assistive Device: FWW Does the Pt use WC or Scooter?: Yes Wheelchair (FIM): 3 Wheelchair Level of Assist: 6 Wheel 50 feet with 2 turns (QC: 6 Stairs (FIM): 6 1 Step (curb) (QC): 6 4 Steps (QC): 6 12 Steps (QC): 4 Stairs Level Of Assist: 6 Picking up an Object (QC): 6 OT Snf Goals Snf Goals Time Frame: Jun 17, 2022 Acute change in mental status: 0 Inattention: 0 Disorganized thinkin Altered level of consciousness: 0 Eating (QC): 6 Oral Hygiene (QC): 6 Toileting Hygiene (QC): 6 Shower/Bathe Self (QC): 5 Upper Body Dressing (QC): 6 Lower Body Dressing (QC): 6 On/Off Footwear (QC): 6 Additional Goals: 1-Demonstrate ADL Tasks, 2-Verbalize Understanding, 3- ImproveStrength/Rafal 1=Demonstrate adherence to instructed precautions during ADL tasks. 2=Patient will verbalize/demonstrate understanding of assistive devices/modifications for ADL. 3=Patient will improve strength/tolerance for activity to enable patient to perform ADL's. Speech Snf Goals Snf Goals 1. The patient will demonstrate improved cognitive linguistic function to safe discharge to the least restrictive environment. Due to acute medical concerns, the patient was transferred to [facility] for a higher level of care. Prior to discharge, the patient received a speech pathology evaluation, only. ST to discharge the patient from skilled services at this time. Time Frame: Two Weeks. RIDGE SHI PT May 23, 2022 10:45
--- NOTE | 2022-05-23 12:02 | Therapy Team Discharge Summary ---
Therapy Discharge Summary Discharge Recommendations Date of Discharge May 21, 2022 at 20:10 Physical Therapy Roll Left to Right (QC): 4 Sit to Lying (QC): 3 Lying to Sitting/Side of Bed(Q: 3 Sit to Stand (QC): 3 Chair/Jth-qq-Wayee Xfer(QC): 3 Toilet Transfer (QC): 1 Car Transfer (QC): 3 Does the Patient Walk: Yes Mode of Locomotion: Walk Anticipated Mode of Locomotion: Walk Walk 10 feet (QC): 4 Walk 50 ft with 2 Turns(QC): 4 Walk 150 ft (QC): 3 Walking 10ft on uneven surface: 4 Distance: 250 feet Gait Assistive Device: FWW Does the Pt Use a Wheelchair: Yes Wheelchair Distance: 150 Wheel 50 ft with 2 turns (QC): 4 Wheel 150 ft (QC): 4 Type of Wheelchair: Manual #of Steps: 4 1 Step (curb) (QC): 4 4 Steps (QC): 4 12 Steps (QC): 88 Balance Sitting Static: Good Balance Sitting Dynamic: Fair Balance-Standing Static: Fair Picking up an Object (QC): 4 (CGA using a walking dragline oiler) Occupational Therapy Pt admitted to ARU s/p L4-S1 TLIF. At OF, pt was independent with ADLs and functional mobility. Upon initial evaluation, pt was independent with eating and oral care, mod A showering, max A UE dressing, LE dressing, footwear, and toileting. OT tx focused on increasing BUE strength and activity tolerance, and increasing independence with ADLs and functional mobility. Pt made some progress, but did not attain goals due to short stay. Pt transferred to another hospital, d/c from OT. 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 Rarely or not at all 2. Occasionally 3. Frequently 4. Almost constantly 8. Unable to answer Pain Effect on Sleep: 2 Pain Interference with Therapy: 2 Pain Interference w/Day-to-Day: 2 Roll Left to Right (QC): 6 Sit to Lying (QC): 6 Lying-Sitting on Side/Bed(QC): 6 Sit to Stand (QC): 6 Chair/Qcz-ww-Tizdw Xfer(QC): 6 Car Transfer (QC): 6 Does the Patient Walk: Yes Gait (FIM): 3 Gait distance (FIM): 3=150 ft Walk 10 feet (QC): 6 Walk 10ft-Uneven Surface(QC): 6 Walk 50ft with 2 Turns (QC): 6 Walk 150 ft (QC): 6 Gait Assistive Device: FWW Does the Pt use WC or Scooter?: Yes Wheelchair (FIM): 3 Wheelchair Level of Assist: 6 Wheel 50 feet with 2 turns (QC: 6 Stairs (FIM): 6 1 Step (curb) (QC): 6 4 Steps (QC): 6 12 Steps (QC): 4 Stairs Level Of Assist: 6 Picking up an Object (QC): 6 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 2=Patient will verbalize/demonstrate understanding of assistive devices/modifications for ADL. 3=Patient will improve strength/tolerance for activity to enable patient to perform ADL's. 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 The patient will demonstrate improved cognitive linguistic function to safe discharge to the least restrictive environment. Due to acute medical concerns, the patient was transferred to [facility] for a higher level of care. Prior to discharge, the patient received a speech pathology evaluation, only. ST to discharge the patient from skilled services at this time. Time Frame: Two Weeks. BETTY CALI OT May 23, 2022 12:02
== END 2022-05-21 20:10 | disposition short-term general hospital (02) | DRG 559 ==
PROVIDERS: ADMIT Internal Medicine; ATTEND Internal Medicine
DX: Z47.89 Encounter for other orthopedic aftercare (principal); J69.0 Pneumonitis due to inhalation of food and vomit; G95.9 Disease of spinal cord, unspecified; C91.10 Chronic lymphocytic leukemia of B-cell type not having achieved remission; Z98.1 Arthrodesis status; M43.16 Spondylolisthesis, lumbar region; D64.9 Anemia, unspecified; I12.9 Hypertensive chronic kidney disease with stage 1 through stage 4 chronic kidney disease, or unspecified chronic kidney disease; N18.9 Chronic kidney disease, unspecified; M10.9 Gout, unspecified; G47.33 Obstructive sleep apnea (adult) (pediatric); I25.10 Atherosclerotic heart disease of native coronary artery without angina pectoris; E78.00 Pure hypercholesterolemia, unspecified; G62.9 Polyneuropathy, unspecified; N40.1 Benign prostatic hyperplasia with lower urinary tract symptoms; R39.14 Feeling of incomplete bladder emptying; K21.9 Gastro-esophageal reflux disease without esophagitis; M19.91 Primary osteoarthritis, unspecified site; F32.A Depression, unspecified; F41.9 Anxiety disorder, unspecified; Q63.1 Lobulated, fused and horseshoe kidney; Z95.5 Presence of coronary angioplasty implant and graft; Z87.891 Personal history of nicotine dependence; Z79.899 Other long term (current) drug therapy
CPT/HCPCS: 36410; 36415; 70450; 71045; 72131; 76937; 80053; 80202; 81000; 82805; 83605; 84145; 85007; 85025; 85027; 86850; 86900; 86901; 86920; 87040